=== PATIENT | female | born 1950 | race Caucasian/White ===

== ENCOUNTER 2016-10-01 09:25 | Outpatient (CLI) | payer MEDICARE ==
[2016-10-01] MEDS ORDERED: ADENOSINE 90 MG/30 ML VIAL IVP ONE (11:00)
== END 2016-10-01 09:26 | disposition home or self-care (01) ==
DX: R06.09 Other forms of dyspnea (principal); I10 Essential (primary) hypertension; E78.5 Hyperlipidemia, unspecified; E66.01 Morbid (severe) obesity due to excess calories
CPT/HCPCS: 78452; 93017; A9500; J0153

== ENCOUNTER 2016-10-10 13:05 | Outpatient (CLI) | payer MEDICARE ==
[2016-10-10] MEDS ORDERED: ALBUTEROL NEB 2.5 MG/3 ML INH ONE (13:44)
== END 2016-10-10 13:06 | disposition home or self-care (01) ==
DX: R06.00 Dyspnea, unspecified (principal)
CPT/HCPCS: 94060; 94729; J7613

== ENCOUNTER 2016-11-19 14:01 | Outpatient (CLI) | payer MEDICARE | END 2016-11-19 14:02 | disposition home or self-care (01) | DX: N95.1 Menopausal and female climacteric states (principal) ==

== ENCOUNTER 2016-12-17 20:10 | Outpatient (CLI) | payer MEDICARE ==
[2016-12-17 19:34] LABS: BASOPHILS # (AUTO) 0.1 10^3/uL (0.0-0.1); BASOPHILS % (AUTO) 1.3 %; EOSINOPHILS # (AUTO) 0.3 10^3/uL (0.0-0.7); EOSINOPHILS % (AUTO) 4.2 %; HCT - HEMATOCRIT 43.9 % (37.0-47.0); HGB - HEMOGLOBIN 14.1 g/dL (12.0-16.0); LYMPHOCYTES # (AUTO) 1.5 10^3/uL (1.5-3.5); LYMPHOCYTES % (AUTO) 20.7 %; MEAN CORPUSCULAR HEMOGLOBIN 28.3 pg (27.0-31.0); MEAN CORPUSCULAR HGB CONC 32.1 g/dL (32.0-36.0); MEAN CORPUSCULAR VOLUME 88.2 fL (81.0-99.0); MEAN PLATELET VOLUME 11.7 fL (7.9-10.8); MONOCYTES # (AUTO) 0.7 10^3/uL (0.0-1.0); NEUTROPHILS # (AUTO) 4.8 10^3/uL (1.5-6.6); NEUTROPHILS % (AUTO) 63.8 %; NUCLEATED RED BLOOD CELLS AUTO 0.1 /100WBC; RED BLOOD COUNT 4.98 10^6/uL (4.20-5.40); RED CELL DISTRIBUTION WIDTH 14.5 % (12.0-15.0); UNCORRECTED WHITE BLOOD COUNT 7.5 x10^3/uL; WHITE BLOOD COUNT 7.5 x10^3/uL (4.8-10.8)
[2016-12-17 19:47] LABS: ALBUMIN/GLOBULIN RATIO 1.2 (1.0-2.2); BILIRUBIN,TOTAL 0.6 mg/dL (0.2-1.0); CALCIUM 9.2 mg/dL (8.5-10.3); CREATININE 0.8 mg/dL (0.4-1.0)
== END 2016-12-17 20:11 | disposition home or self-care (01) ==
LOC: LAB.WCP 20:10
PROVIDERS: ATTEND Physician Assistant Medical
DX: R53.83 Other fatigue (principal)
CPT/HCPCS: 36415; 80053; 84443; 85025

== ENCOUNTER 2017-01-08 14:56 | Outpatient (CLI) | payer MEDICARE ==
[2017-01-08] MEDS ORDERED: IOPAMIDOL-300 100 ML VIAL IVP ONE (15:46)
--- NOTE | 2017-01-09 02:20 | CT Report ---
EXAM: CT SOFT TISSUE NECK EXAM DATE: 01/08/2017 03:34 PM. HISTORY: Dysphagia, feels like there is a lump in the throat. COMPARISONS: None. TECHNIQUE: Routine soft tissue neck CT protocol. IV contrast: 100 cc Isovue-300. Reconstructions: Cor onal and sagittal. In accordance with CT protocol optimization, one or more of the following dose reduction techniques w ere utilized for this exam: automated exposure control, adjustment of mA and/or KV based on patient s ize, or use of iterative reconstructive technique. FINDINGS: Intracranial structures: Visualized intracranial structures are unremarkable. The paranasal sinuses, the visualized orbits, the mastoid air cells are unremarkable. Bones: No fractures, bone lesions . Moderate degenerative spondylosis of the visualized spine, with n o acute fracture or malalignment. Prominent anterior osteophytosis is seen at C5-C6 level (series 6 i mage 43). Glands: The salivary glands, thyroid gland, and tonsillar tissues are normal in size and enhancement. Soft Tissues: Normal. No adenopathy, abscess, or mass. No airway narrowing. No foreign bodies identif ied. Other: Visualized lung apices are clear. IMPRESSION: 1. Prominent anterior osteophytosis is seen at C5-C6 level (series 6 image 43). This could result in globus sensation. 2. No evidence of soft tissue mass, adenopathy, or abscess. No airway narrowing. [facility] Referring Provider Line: [phone] SITE ID: [id number]
== END 2017-01-08 14:57 | disposition home or self-care (01) ==
LOC: DI 14:56
PROVIDERS: ATTEND Physician Assistant Medical
DX: M25.78 Osteophyte, vertebrae (principal)
CPT/HCPCS: 70491; Q9967

== ENCOUNTER 2017-01-09 13:42 | Outpatient (CLI) | payer MEDICARE ==
[2017-01-09] MEDS ORDERED: GADOBUTROL 15 MMOL/15 ML VIAL IVP ONE (15:17)
--- NOTE | 2017-01-10 18:26 | MRI Report ---
EXAM: MRI BRAIN WITHOUT AND WITH CONTRAST EXAM DATE: 01/09/2017 03:28 PM. CLINICAL HISTORY: Memory loss, headache. COMPARISON: None. TECHNIQUE: Multiplanar, multisequence T1-weighted and fluid-sensitive MR sequences of the brain were performed. Sequences optimized for routine evaluation. Other: None. Without and with IV Contrast: Wit hout and with 12 mL Gadavist. FINDINGS: Brain Volume: Normal for age. Parenchyma/Dura: No acute or recent ischemic infarct. No cerebral hemorrhage. Aevo-jm-ijfdzinb white matter disease is present including a few scattered foci of nodular and amorphous T2 hyperintensity i n the cerebral deep white matter as well as more confluent and amorphous T2 hyperintensities at the m argins of the lateral ventricles. No abnormal cerebral enhancement. 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 No other evidence for intracranial enhancing or space-occupying mass. Contrast opacificati on of the major dural venous sinuses is present as expected. Ventricles/Cisterns: No hydrocephalus. Sinuses: No acute sinus or mastoid disease. Bones: No focal pathologic appearing marrow signal changes in the skull or clivus. Other: The major arterial skull base flow voids are present. IMPRESSION: 1. No acute hemorrhage, stroke or intracranial enhancing mass. 2. Mild to moderate non-specific cerebral white matter T2 hyperintensities, likely from aging and chr onic microangiopathy. 3. 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 [facility] Referring Provider Line: [phone] SITE ID: [id number]
== END 2017-01-09 13:43 | disposition home or self-care (01) ==
LOC: DI 13:42
PROVIDERS: ATTEND Physician Assistant Medical
DX: R41.3 Other amnesia (principal); R51 Headache
CPT/HCPCS: 70553; A9585

== ENCOUNTER 2017-01-26 14:16 | Outpatient (CLI) | payer MEDICARE, OTHER | END 2017-01-26 14:17 | disposition critical access hospital (66) | DX: S91.012A Laceration without foreign body, left ankle, initial encounter (principal); M25.562 Pain in left knee; V28.4XXA Motorcycle driver injured in noncollision transport accident in traffic accident, initial encounter; Y92.414 Local residential or business street as the place of occurrence of the external cause | CPT/HCPCS: A0425; A0427 ==

== ENCOUNTER 2017-01-26 14:29 | Emergency (ER) | payer MEDICARE, OTHER ==
[2017-01-26] MEDS ORDERED: HYDROmorphone 1 MG/ML SYRINGE IVP STA ×2 (14:39→14:53)
[2017-01-26] MEDS ORDERED: TETANUS/DIPHTHERIA/PERTUSSIS 0.5 ML SYRINGE IM ONE ×2 (14:40→14:45)
[2017-01-26] MEDS ORDERED: ONDANSETRON 4 MG/2 ML VIAL IVP STA (14:40)
[2017-01-26] MEDS ORDERED: ceFAZolin 2 GM/50 ML 50 ML IV ONE ×2 (14:40→14:45)
[2017-01-26] MEDS ORDERED: ONDANSETRON 4 MG/2 ML VIAL ONE (14:44)
[2017-01-26] MEDS ORDERED: HYDROmorphone 1 MG/ML SYRINGE ONE (14:53)
[2017-01-26] MEDS ORDERED: diazePAM INJ 5 MG/ML SYRINGE ONE ×3 (15:18→16:58)
[2017-01-26] MEDS ORDERED: diazePAM INJ 5 MG/ML SYRINGE IVP STA ×3 (15:19→16:58)
== END 2017-01-26 17:52 | disposition short-term general hospital (02) ==
DX: S82.142A Displaced bicondylar fracture of left tibia, initial encounter for closed fracture (principal); S92.142B Displaced dome fracture of left talus, initial encounter for open fracture; S02.2XXA Fracture of nasal bones, initial encounter for closed fracture; S02.32XA Fracture of orbital floor, left side, initial encounter for closed fracture; S93.05XA Dislocation of left ankle joint, initial encounter; V27.4XXA Motorcycle driver injured in collision with fixed or stationary object in traffic accident, initial encounter; Y92.89 Other specified places as the place of occurrence of the external cause; Z23 Encounter for immunization
CPT/HCPCS: 36415; 70450; 70486; 72125; 72192; 73590; 73610; 73700; 80053; 83690; 85025; 90471; 90715; 96374; 96375; 96376; 99284; 99285; J0690; J1170

== ENCOUNTER 2017-02-23 07:10 | Outpatient (CLI) | payer MEDICARE ==
[2017-02-23 07:56] LABS: BUN - BLOOD UREA NITROGEN 5 mg/dL (6-20); CALCIUM 8.1 mg/dL (8.5-10.3); CARBON DIOXIDE - CO2 32 mmol/L (21-32); CHLORIDE 95 mmol/L (101-111); CREATININE 0.5 mg/dL (0.4-1.0); GFR - MDRD 123 (>89); GLUCOSE 104 mg/dL (70-100); POTASSIUM 3.1 mmol/L (3.5-5.0); SODIUM 136 mmol/L (135-145)
[2017-02-23 08:01] LABS: BASOPHILS % (AUTO) 0.8 %; EOSINOPHILS # (AUTO) 0.1 10^3/uL (0.0-0.7); EOSINOPHILS % (AUTO) 1.3 %; HCT - HEMATOCRIT 21.6 % (37.0-47.0); LYMPHOCYTES # (AUTO) 0.8 10^3/uL (1.5-3.5); LYMPHOCYTES % (AUTO) 13.9 %; MEAN CORPUSCULAR HGB CONC 31.8 g/dL (32.0-36.0); MEAN CORPUSCULAR VOLUME 84.8 fL (81.0-99.0); MEAN PLATELET VOLUME 8.8 fL (7.9-10.8); MONOCYTES # (AUTO) 0.8 10^3/uL (0.0-1.0); MONOCYTES % (AUTO) 14.9 %; NEUTROPHILS # (AUTO) 3.9 10^3/uL (1.5-6.6); NEUTROPHILS % (AUTO) 69.1 %; RED BLOOD COUNT 2.55 10^6/uL (4.20-5.40); RED CELL DISTRIBUTION WIDTH 16.7 % (12.0-15.0); UNCORRECTED WHITE BLOOD COUNT 5.7 x10^3/uL; WHITE BLOOD COUNT 5.7 x10^3/uL (4.8-10.8)
[2017-02-23 08:14] LABS: HGB - HEMOGLOBIN 6.9 g/dL (12.0-16.0)
[2017-02-23 08:25] LABS: PLATELET ESTIMATE, MANUAL NORMAL (130-450,000) (NORMAL); PLATELET MORPHOLOGY NORMAL APPEARANCE (NORMAL)
== END 2017-02-23 07:11 | disposition home or self-care (01) ==
LOC: LAB 07:10
PROVIDERS: ATTEND Family Medicine
DX: J96.01 Acute respiratory failure with hypoxia (principal); D64.9 Anemia, unspecified; Z51.81 Encounter for therapeutic drug level monitoring
CPT/HCPCS: 80048; 85025

== ENCOUNTER 2017-02-23 11:59 | Outpatient (CLI) | payer MEDICARE | END 2017-02-23 12:00 | disposition critical access hospital (66) | LOC: EMS 11:59 | PROVIDERS: ATTEND Surgery | DX: D64.9 Anemia, unspecified (principal) | CPT/HCPCS: A0425; A0428; A0429 ==

== ENCOUNTER 2017-02-23 12:02 | Emergency (ER) | payer MEDICARE ==
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
[2017-02-23] MEDS ORDERED: diazePAM 5 MG TABLET PO STA (13:10)
[2017-02-23] MEDS ORDERED: diazePAM 5 MG TABLET PO ONE (13:17)
[2017-02-23] MEDS ORDERED: ACETAMINOPHEN 1,000 MG/100 ML 100 ML IV STA (13:35)
[2017-02-23] MEDS ORDERED: ACETAMINOPHEN 1,000 MG/100 ML 100 ML IV ONE (13:46)
[2017-02-23] MEDS ORDERED: MORPHINE 2 MG/ML SYRINGE IVP STA (14:26)
[2017-02-23] MEDS ORDERED: ONDANSETRON 4 MG/2 ML VIAL IVP STA (14:26)
[2017-02-23] MEDS ORDERED: MORPHINE 2 MG/ML SYRINGE ONE (14:35)
[2017-02-23] MEDS ORDERED: ONDANSETRON 4 MG/2 ML VIAL ONE (14:35)
[2017-02-23] MEDS ORDERED: SODIUM CHLORIDE 0.9% 10 ML ONE (14:36)
[2017-02-23] MEDS ORDERED: SODIUM CHLORIDE FLUSH 0.9% 10 ML SYRINGE IVP ONE (14:36)
[2017-02-23 17:51] VITALS: BP 119/74
--- NOTE | 2017-02-23 20:10 | Ultrasound Report ---
LEFT LEG VENOUS DUPLEX: 02/23/2017 CLINICAL INDICATION: Postop swelling, pain. TECHNIQUE: Real-time sonographic vascular imaging was performed by the reinforcing metal worker through the left lower extremity utilizing both color-flow and Doppler spectral analysis. Multiple employment representative sta tic images were saved for review. There is no evidence of DVT in the left common femoral, profunda femoral, superficial femoral or popl iteal veins. The calf veins were not visualized, secondary to external fixator hardware. IMPRESSION: NO EVIDENCE OF DVT IN THE VISUALIZED VENOUS SEGMENTS. JOB #: [id number] EXT JOB #:
== END 2017-02-23 18:24 | disposition home or self-care (01) ==
LOC: ED 12:02
DX: D64.9 Anemia, unspecified (principal); M79.662 Pain in left lower leg; M79.89 Other specified soft tissue disorders; R19.7 Diarrhea, unspecified; I10 Essential (primary) hypertension; E78.00 Pure hypercholesterolemia, unspecified; G47.30 Sleep apnea, unspecified; K21.9 Gastro-esophageal reflux disease without esophagitis; N28.9 Disorder of kidney and ureter, unspecified; M19.90 Unspecified osteoarthritis, unspecified site
CPT/HCPCS: 36415; 80048; 80202; 85025; 86850; 86900; 86901; 87493; 93971; 96365; 96375; 99284; A9270; J0131; 86920

== ENCOUNTER 2017-02-23 18:40 | Outpatient (CLI) | payer MEDICARE | END 2017-02-23 18:41 | LOC: EMS 18:40 | PROVIDERS: ATTEND Surgery | DX: D64.9 Anemia, unspecified (principal) ==

== ENCOUNTER 2017-02-24 08:00 | Outpatient (CLI) | payer MEDICARE | END 2017-02-24 08:01 | disposition home or self-care (01) | LOC: LAB 08:00 | PROVIDERS: ATTEND Family Medicine | DX: T81.4XXD Infection following a procedure, subsequent encounter (principal) ==

== ENCOUNTER 2017-02-26 07:45 | Outpatient (CLI) | payer OTHER, MEDICARE ==
[2017-02-26 10:31] LABS: BASOPHILS % (AUTO) 0.7 %; EOSINOPHILS # (AUTO) 0.2 10^3/uL (0.0-0.7); EOSINOPHILS % (AUTO) 4.4 %; HCT - HEMATOCRIT 26.6 % (37.0-47.0); HGB - HEMOGLOBIN 8.4 g/dL (12.0-16.0); LYMPHOCYTES # (AUTO) 0.6 10^3/uL (1.5-3.5); LYMPHOCYTES % (AUTO) 10.4 %; MEAN CORPUSCULAR HEMOGLOBIN 26.7 pg (27.0-31.0); MEAN CORPUSCULAR HGB CONC 31.4 g/dL (32.0-36.0); MEAN CORPUSCULAR VOLUME 85.1 fL (81.0-99.0); MEAN PLATELET VOLUME 9.6 fL (7.9-10.8); MONOCYTES # (AUTO) 0.6 10^3/uL (0.0-1.0); NEUTROPHILS # (AUTO) 3.9 10^3/uL (1.5-6.6); NEUTROPHILS % (AUTO) 72.5 %; RED BLOOD COUNT 3.13 10^6/uL (4.20-5.40); RED CELL DISTRIBUTION WIDTH 17.1 % (12.0-15.0); UNCORRECTED WHITE BLOOD COUNT 5.3 x10^3/uL; WHITE BLOOD COUNT 5.3 x10^3/uL (4.8-10.8)
[2017-02-26 10:55] LABS: CREATININE 0.5 mg/dL (0.4-1.0)
[2017-02-26 10:59] LABS: CALCIUM 8.1 mg/dL (8.5-10.3); POTASSIUM 3.3 mmol/L (3.5-5.0)
== END 2017-02-26 07:46 | disposition home or self-care (01) ==
LOC: LAB.R 07:45
DX: I10 Essential (primary) hypertension (principal); D64.9 Anemia, unspecified
CPT/HCPCS: 80048; 85025

== ENCOUNTER 2017-02-28 08:00 | Outpatient (CLI) | payer MEDICARE, OTHER ==
[2017-02-28 10:42] LABS: BASOPHILS # (AUTO) 0.1 10^3/uL (0.0-0.1); EOSINOPHILS # (AUTO) 0.3 10^3/uL (0.0-0.7); EOSINOPHILS % (AUTO) 3.9 %; HCT - HEMATOCRIT 24.3 % (37.0-47.0); HGB - HEMOGLOBIN 7.5 g/dL (12.0-16.0); LYMPHOCYTES # (AUTO) 0.7 10^3/uL (1.5-3.5); MEAN PLATELET VOLUME 9.7 fL (7.9-10.8); MONOCYTES # (AUTO) 0.8 10^3/uL (0.0-1.0); MONOCYTES % (AUTO) 9.6 %; NEUTROPHILS % (AUTO) 76.5 %; RED BLOOD COUNT 2.89 10^6/uL (4.20-5.40); RED CELL DISTRIBUTION WIDTH 17.3 % (12.0-15.0); UNCORRECTED WHITE BLOOD COUNT 7.8 x10^3/uL; WHITE BLOOD COUNT 7.8 x10^3/uL (4.8-10.8)
[2017-02-28 10:57] LABS: ALBUMIN/GLOBULIN RATIO 0.6 (1.0-2.2); BILIRUBIN,TOTAL 0.4 mg/dL (0.2-1.0); CALCIUM 8.2 mg/dL (8.5-10.3); CREATININE 0.5 mg/dL (0.4-1.0); POTASSIUM 3.5 mmol/L (3.5-5.0); TOTAL PROTEIN 5.5 g/dL (6.7-8.2)
== END 2017-02-28 08:01 | disposition home or self-care (01) ==
LOC: LAB.R 08:00
DX: I10 Essential (primary) hypertension (principal); T81.4XXD Infection following a procedure, subsequent encounter
CPT/HCPCS: 80053; 82550; 85025; 85651

== ENCOUNTER 2017-03-04 10:30 | Outpatient (CLI) | payer MEDICARE ==
[2017-03-04 14:39] LABS: CREATININE 0.5 mg/dL (0.4-1.0); POTASSIUM 3.4 mmol/L (3.5-5.0)
[2017-03-04 16:08] LABS: BASOPHILS # (AUTO) 0.1 10^3/uL (0.0-0.1); BASOPHILS % (AUTO) 0.7 %; EOSINOPHILS # (AUTO) 0.3 10^3/uL (0.0-0.7); EOSINOPHILS % (AUTO) 3.5 %; HCT - HEMATOCRIT 29.3 % (37.0-47.0); HGB - HEMOGLOBIN 8.9 g/dL (12.0-16.0); LYMPHOCYTES # (AUTO) 0.7 10^3/uL (1.5-3.5); LYMPHOCYTES % (AUTO) 8.7 %; MEAN CORPUSCULAR HEMOGLOBIN 25.4 pg (27.0-31.0); MEAN CORPUSCULAR HGB CONC 30.3 g/dL (32.0-36.0); MEAN CORPUSCULAR VOLUME 83.6 fL (81.0-99.0); MEAN PLATELET VOLUME 9.6 fL (7.9-10.8); MONOCYTES # (AUTO) 0.7 10^3/uL (0.0-1.0); NEUTROPHILS # (AUTO) 6.5 10^3/uL (1.5-6.6); NEUTROPHILS % (AUTO) 78.1 %; NUCLEATED RED BLOOD CELLS AUTO 0.1 /100WBC; RED CELL DISTRIBUTION WIDTH 17.3 % (12.0-15.0); UNCORRECTED WHITE BLOOD COUNT 8.3 x10^3/uL; WHITE BLOOD COUNT 8.3 x10^3/uL (4.8-10.8)
== END 2017-03-04 10:31 | disposition home or self-care (01) ==
LOC: LAB.R 10:30
DX: D64.9 Anemia, unspecified (principal); R79.89 Other specified abnormal findings of blood chemistry; T81.4XXD Infection following a procedure, subsequent encounter
CPT/HCPCS: 80048; 82550; 85025

== ENCOUNTER 2017-03-07 08:00 | Outpatient (CLI) | payer MEDICARE ==
[2017-03-07 21:55] LABS: BASOPHILS # (AUTO) 0.1 10^3/uL (0.0-0.1); BASOPHILS % (AUTO) 0.6 %; EOSINOPHILS # (AUTO) 0.4 10^3/uL (0.0-0.7); EOSINOPHILS % (AUTO) 4.5 %; HCT - HEMATOCRIT 24.8 % (37.0-47.0); LYMPHOCYTES # (AUTO) 1.5 10^3/uL (1.5-3.5); LYMPHOCYTES % (AUTO) 18.1 %; MEAN CORPUSCULAR HEMOGLOBIN 26.2 pg (27.0-31.0); MEAN CORPUSCULAR HGB CONC 32.2 g/dL (32.0-36.0); MEAN CORPUSCULAR VOLUME 81.5 fL (81.0-99.0); MEAN PLATELET VOLUME 8.9 fL (7.9-10.8); MONOCYTES % (AUTO) 12.4 %; NEUTROPHILS # (AUTO) 5.4 10^3/uL (1.5-6.6); NEUTROPHILS % (AUTO) 64.4 %; RED BLOOD COUNT 3.04 10^6/uL (4.20-5.40); RED CELL DISTRIBUTION WIDTH 17.8 % (12.0-15.0); UNCORRECTED WHITE BLOOD COUNT 8.3 x10^3/uL; WHITE BLOOD COUNT 8.3 x10^3/uL (4.8-10.8)
[2017-03-07 21:58] LABS: ALBUMIN/GLOBULIN RATIO 0.7 (1.0-2.2); BILIRUBIN,TOTAL 0.4 mg/dL (0.2-1.0); BUN - BLOOD UREA NITROGEN < 5 mg/dL (6-20); CALCIUM 7.9 mg/dL (8.5-10.3); CARBON DIOXIDE - CO2 35 mmol/L (21-32); CHLORIDE 90 mmol/L (101-111); CREATININE 0.6 mg/dL (0.4-1.0); GFR - MDRD 100 (>89); GLUCOSE 93 mg/dL (70-100); POTASSIUM 2.6 mmol/L (3.5-5.0); SODIUM 133 mmol/L (135-145); TOTAL PROTEIN 4.7 g/dL (6.7-8.2)
== END 2017-03-07 08:01 | disposition home or self-care (01) ==
LOC: LAB.R 08:00
DX: I10 Essential (primary) hypertension (principal); D64.9 Anemia, unspecified; S22.068D Other fracture of T7-T8 thoracic vertebra, subsequent encounter for fracture with routine healing
CPT/HCPCS: 80053; 82550; 85025

== ENCOUNTER 2017-03-10 23:00 | Outpatient (CLI) | payer MEDICARE | END 2017-03-10 23:01 | disposition critical access hospital (66) | LOC: EMS 23:00 | PROVIDERS: ATTEND Surgery | DX: R10.32 Left lower quadrant pain (principal) | CPT/HCPCS: A0425; A0429 ==

== ENCOUNTER 2017-03-10 23:05 | Inpatient (IN) | payer MEDICARE ==
[2017-03-10] MEDS ORDERED: ONDANSETRON 4 MG/2 ML VIAL IVP STA (23:21)
[2017-03-10] MEDS ORDERED: SODIUM CHLORIDE 0.9% 1,000 ML IV ONE (23:21)
[2017-03-10 23:58] LABS: PH,URINE 5.5 PH (5.0-7.5)
[2017-03-10] MEDS ORDERED: ONDANSETRON 4 MG/2 ML VIAL ONE (23:59)
[2017-03-11 00:02] LABS: UA w/ MICROSCOPIC CHARGE YES
[2017-03-11 00:05] LABS: BILIRUBIN,URINE NEGATIVE (NEGATIVE)
[2017-03-11 00:09] LABS: UR CULTURE IF IND INDICATED
[2017-03-11 00:10] LABS: ALBUMIN/GLOBULIN RATIO 0.5 (1.0-2.2); BILIRUBIN,TOTAL 0.6 mg/dL (0.2-1.0); BUN - BLOOD UREA NITROGEN 26 mg/dL (6-20); CARBON DIOXIDE - CO2 33 mmol/L (21-32); CHLORIDE 82 mmol/L (101-111); CREATININE 1.3 mg/dL (0.4-1.0); GFR - MDRD 41 (>89); GLUCOSE 122 mg/dL (70-100); LIPASE 18 U/L (22-51); POTASSIUM 2.9 mmol/L (3.5-5.0); SODIUM 127 mmol/L (135-145); TOTAL PROTEIN 5.1 g/dL (6.7-8.2)
[2017-03-11 00:18] LABS: BASOPHILS % (AUTO) 0.3 %; EOSINOPHILS % (AUTO) 1.6 %; HCT - HEMATOCRIT 33.5 % (37.0-47.0); HGB - HEMOGLOBIN 10.5 g/dL (12.0-16.0); LYMPHOCYTES % (AUTO) 7.8 %; MEAN CORPUSCULAR HEMOGLOBIN 25.2 pg (27.0-31.0); MEAN CORPUSCULAR HGB CONC 31.2 g/dL (32.0-36.0); MEAN CORPUSCULAR VOLUME 80.6 fL (81.0-99.0); MEAN PLATELET VOLUME 9.3 fL (7.9-10.8); MONOCYTES % (AUTO) 8.5 %; NEUTROPHILS % (AUTO) 81.8 %; RED BLOOD COUNT 4.15 10^6/uL (4.20-5.40); RED CELL DISTRIBUTION WIDTH 18.4 % (12.0-15.0); UNCORRECTED WHITE BLOOD COUNT 44.3 x10^3/uL
[2017-03-11 00:20] LABS: WHITE BLOOD COUNT 44.3 x10^3/uL (4.8-10.8)
[2017-03-11] MEDS ORDERED: MIN OIL/DIMETHICON/COCONUT OIL 92 GM TUBE TOP ONE (00:29)
[2017-03-11 01:16] LABS: MAGNESIUM 1.5 mg/dL (1.7-2.8); PHOSPHORUS 4.5 mg/dL (2.5-4.6)
[2017-03-11] MEDS ORDERED: HYDROmorphone 1 MG/ML SYRINGE IM STA (01:23)
[2017-03-11] MEDS ORDERED: SODIUM CHLORIDE 0.9% 1,000 ML IV ONE (01:24)
[2017-03-11] MEDS ORDERED: HYDROmorphone 1 MG/ML SYRINGE ONE (01:31)
[2017-03-11 01:32] LABS: BAND NEUTROPHILS % (MANUAL) 12 %; EOSINOPHILS % (MANUAL) 1 %; LYMPHOCYTES % (MANUAL) 15 %; NEUTROPHILS % (MANUAL) 66 %; TOTAL CELLS COUNTED 100
[2017-03-11 01:33] LABS: NP AUTO DIFFERENTIAL? YES; NP MAN DIFFERENTIAL? NO; PLATELET ESTIMATE, MANUAL NORMAL (130-450,000) (NORMAL)
[2017-03-11] MEDS ORDERED: SODIUM CHLORIDE FLUSH 0.9% 10 ML SYRINGE IVP ONE (01:37)
[2017-03-11] MEDS ORDERED: MORPHINE 2 MG/ML CARPUJECT IVP STA (01:38)
[2017-03-11] MEDS ORDERED: MORPHINE 2 MG/ML CARPUJECT ONE (01:43)
--- NOTE | 2017-03-11 01:45 | CT Preliminary Report ---
Exam: CT Abdomen/Pelvis W/O IMPRESSION: 1. Marked pancolitis, likely infectious. Ulcerative colitis would be in the differential diagnosis. 2. Ufce-vf-vzdbfpmk ascites. No free air seen. 3. Elevated right hemidiaphragm with bibasilar atelectasis or infiltrate, right greater than left. 4. Trace pericardial effusion. 5. Body wall edema. 6. Ventral hernia containing fat, unchanged from the prior CT. [facility] SITE ID: [id number]
--- NOTE | 2017-03-11 01:47 | CT Report ---
EXAM: CT ABDOMEN AND PELVIS EXAM DATE: 03/11/2017 01:18 AM. CLINICAL HISTORY: Kidney disease. Markedly elevated white count. Diarrhea. COMPARISONS: 05/30/2016. TECHNIQUE: Routine helical CT imaging was performed through the abdomen and pelvis. IV contrast: None . Enteric contrast: No. Reconstructions: Coronal and sagittal. In accordance with CT protocol optimization, one or more of the following dose reduction techniques w ere utilized for this exam: automated exposure control, adjustment of mA and/or KV based on patient s ize, or use of iterative reconstructive technique. FINDINGS: Lung Bases: Bibasilar atelectasis or infiltrate. Elevated right hemidiaphragm. Trace pericardial effu alma. Liver: No focal lesion identified on this noncontrast examination. Gallbladder/Bile Ducts: Status post cholecystectomy. Spleen: Normal. Pancreas: Normal. Adrenal Glands: Normal. Kidneys: Left renal cyst measuring 2.2 cm. No masses or hydronephrosis. Peritoneal Cavity/Bowel: Marked wall thickening of the entire colon. No definite pneumatosis identifi ed. No small bowel obstruction. Small to moderate amount of ascites. No lymphadenopathy seen. Appendi x is not optimally assessed. Pelvic Organs: Decompressed urinary bladder with Segura catheter. Uterus is not seen. Vasculature: Mild to moderate atherosclerosis. No aortic aneurysm. Bones: Degenerative changes in the spine. Other: Hernia repair. Ventral hernia containing fat, unchanged from the prior exam. Body wall edema e xtending into the thighs. IMPRESSION: 1. Marked pancolitis, likely infectious. Ulcerative colitis would be in the differential diagnosis. 2. Imyc-xb-ouyntusj ascites. No free air seen. 3. Elevated right hemidiaphragm with bibasilar atelectasis or infiltrate, right greater than left. 4. Trace pericardial effusion. 5. Body wall edema. 6. Ventral hernia containing fat, unchanged from the prior CT. [facility] Referring Provider Line: [phone] SITE ID: [id number]
--- NOTE | 2017-03-11 01:50 | XRAY Preliminary Report ---
Exam: XR Chest 1 View IMPRESSION: 1. Elevated right hemidiaphragm with mild bibasilar atelectasis or infiltrate. [facility] SITE ID: [id number]
--- NOTE | 2017-03-11 01:53 | XRAY Report ---
EXAM: CHEST RADIOGRAPHY EXAM DATE: 03/11/2017 01:18 AM. CLINICAL HISTORY: Elevated white count. COMPARISON: 04/24/2016. TECHNIQUE: 1 view. FINDINGS: Lungs/Pleura: Elevated right hemidiaphragm. Mild bibasilar atelectasis or infiltrate. No significant pleural effusion seen. No pneumothorax. Mediastinum: Within exam limitations, cardiomediastinal contour is probably normal. Other: None. IMPRESSION: 1. Elevated right hemidiaphragm with mild bibasilar atelectasis or infiltrate. [facility] Referring Provider Line: [phone] SITE ID: [id number]
[2017-03-11] MEDS ORDERED: metroNIDAZOLE 500 MG/100 ML 100 ML IV ONE (01:54)
[2017-03-11] MEDS ORDERED: ONDANSETRON 4 MG/2 ML VIAL IVP PRN (02:22)
[2017-03-11] MEDS ORDERED: ACETAMINOPHEN 325 MG TABLET PO PRN (02:22)
[2017-03-11] MEDS ORDERED: MAGNESIUM SULFATE 2 GRAM 50 ML IV ONE (02:26)
[2017-03-11] MEDS ORDERED: VANCOMYCIN 125 MG CAPSULE PO STA (02:27)
[2017-03-11] MEDS ORDERED: MORPHINE 2 MG/ML CARPUJECT IVP PRN (02:33)
[2017-03-11] MEDS ORDERED: NON FORMULARY MED (Melatonin [Melatonin] 3 MG) PO PRN (02:37)
[2017-03-11] MEDS ORDERED: NS W/20 MEQ KCL 1,000 ML IV SCH (03:00)
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
[2017-03-11] MEDS: SODIUM CHLORIDE FLUSH 0.9% 10 ML SYRINGE IVP PRN ×4 (05:30→21:12)
[2017-03-11] MEDS: SODIUM CHLORIDE FLUSH 0.9% 10 ML SYRINGE IVP SCH ×3 (05:30→17:14)
[2017-03-11 05:48] LABS: BASOPHILS % (AUTO) 0.5 %; EOSINOPHILS % (AUTO) 0.5 %; HCT - HEMATOCRIT 35.1 % (37.0-47.0); HGB - HEMOGLOBIN 10.8 g/dL (12.0-16.0); MEAN CORPUSCULAR HEMOGLOBIN 24.8 pg (27.0-31.0); MEAN CORPUSCULAR HGB CONC 30.9 g/dL (32.0-36.0); MEAN CORPUSCULAR VOLUME 80.2 fL (81.0-99.0); MEAN PLATELET VOLUME 8.4 fL (7.9-10.8); MONOCYTES % (AUTO) 8.6 %; NEUTROPHILS % (AUTO) 82.4 %; RED BLOOD COUNT 4.38 10^6/uL (4.20-5.40); RED CELL DISTRIBUTION WIDTH 18.1 % (12.0-15.0); UNCORRECTED WHITE BLOOD COUNT 46.9 x10^3/uL
[2017-03-11 05:58] LABS: WHITE BLOOD COUNT 46.9 x10^3/uL (4.8-10.8)
[2017-03-11 06:01] LABS: ALBUMIN/GLOBULIN RATIO 0.5 (1.0-2.2); BILIRUBIN,TOTAL 0.5 mg/dL (0.2-1.0); BUN - BLOOD UREA NITROGEN 27 mg/dL (6-20); CALCIUM 6.8 mg/dL (8.5-10.3); CARBON DIOXIDE - CO2 32 mmol/L (21-32); CHLORIDE 85 mmol/L (101-111); CREATININE 1.3 mg/dL (0.4-1.0); GFR - MDRD 41 (>89); GLUCOSE 132 mg/dL (70-100); MAGNESIUM 2.6 mg/dL (1.7-2.8); POTASSIUM 3.1 mmol/L (3.5-5.0); SODIUM 127 mmol/L (135-145)
[2017-03-11] MEDS: MORPHINE 2 MG/ML CARPUJECT IVP PRN ×4 (06:43→20:25)
[2017-03-11 06:48] LABS: BAND NEUTROPHILS % (MANUAL) 11 %; BASOPHILS % (MANUAL) 1 %; LYMPHOCYTES % (MANUAL) 10 %; NEUTROPHILS % (MANUAL) 59 %; TOTAL CELLS COUNTED 100
[2017-03-11 06:49] LABS: NP AUTO DIFFERENTIAL? YES; NP MAN DIFFERENTIAL? NO; PLATELET ESTIMATE, MANUAL NORMAL (130-450,000) (NORMAL); SLIDE SENT FOR PATH REVIEW? Indicated
[2017-03-11 06:50] LABS: CBC SPECIMEN NUMBER 734562; PATHOLOGIST REVIEW ORDER PATH SLIDE REVIEW
[2017-03-11] MEDS: MIN OIL/DIMETHICON/COCONUT OIL 92 GM TUBE TOP SCH ×2 (07:03→20:37)
[2017-03-11] MEDS: PANTOPRAZOLE 40 MG VIAL IVP SCH (07:03)
[2017-03-11] MEDS: VANCOMYCIN 125 MG CAPSULE PO SCH ×4 (07:04→20:37)
[2017-03-11] MEDS: IPRATROPIUM/ALBUTEROL 3 ML NEB INH PRN ×3 (07:55→16:41)
[2017-03-11] MEDS: BUDESONIDE 0.5 MG/2 ML NEB INH SCH ×2 (07:55→16:41)
[2017-03-11] MEDS ORDERED: POTASSIUM CHLORIDE INJ 40 MEQ in SODIUM CHLORIDE 0.9% 480 ML IV ONE (08:06)
[2017-03-11] MEDS ORDERED: CALCIUM GLUCONATE 1,000 MG in SODIUM CHLORIDE 0.9% 50 ML IV ONE ×2 (08:08→09:00)
--- NOTE | 2017-03-11 08:49 | PROVIDER PROGRESS NOTE ---
Subjective - Prog Note Date Prog Note Date: 03/11/17 - Subjective Pt reports feeling: Improved Subjective: pt report she feel better, got some sleep on last night. No fever, chill, chest pain, headache. Current Medications - Current Medications Current Medications: Active Medications Acetaminophen (Tylenol) 650 mg PO Q4HR PRN PRN Reason: Pain 1 to 4 Albuterol/Ipratropium (Duoneb) 3 ml INH RTQID PRN PRN Reason: Shortness of Air/Wheezing Last Admin: 03/11/17 07:55 Dose: 3 ml Budesonide (Pulmicort) 0.5 mg INH RTBID ZULY Last Admin: 03/11/17 07:55 Dose: 0.5 mg Carbidopa/Levodopa (Sinemet 25 Mg/100 Mg) 1 tab PO BID [facility] Enoxaparin Sodium (Lovenox) 40 mg SUBQ DAILY [facility] Escitalopram Oxalate (Lexapro) 30 mg PO DAILY [facility] Felodipine (Plendil) 5 mg PO DAILY [facility] Potassium Chloride/Sodium Chloride (Normal Saline 0.9% W/20 Meq Kcl) 1,000 mls @ 100 mls/hr IV .Q10H [facility] Last Admin: 03/11/17 04:23 Dose: 100 mls/hr Piperacillin Sod/Tazobactam (Sod 3.375 gm/ Sodium Chloride) 100 mls @ 200 mls/ hr IV Q6H [facility] Calcium Gluconate 1,000 mg/ (Sodium Chloride) 60 mls @ 60 mls/hr IV ONCE ONE Stop: 03/11/17 09:59 Potassium Chloride (Potassium Chloride) 100 mls @ 100 mls/hr IV Q1H [facility] Stop: 03/11/17 12:59 Mineral Oil (Cavilon) 1 applic TOP BID [facility] Last Admin: 03/11/17 07:03 Dose: 1 applic Morphine Sulfate (Morphine) 4 mg IVP Q2HR PRN PRN Reason: PAIN Last Admin: 03/11/17 06:43 Dose: 4 mg Multivitamins (Theragran) 1 tab PO DAILYWM [facility] Ondansetron HCl (Zofran Inj) 4 mg IVP Q4HR PRN PRN Reason: Nausea / Vomiting Pantoprazole Sodium (Protonix) 40 mg IVP QDAC [facility] Last Admin: 03/11/17 07:03 Dose: 40 mg Polyethylene Glycol (Miralax) 17 gm PO DAILY [facility] Sodium Chloride (Normal Saline Flush 0.9%) 10 ml IVP PRN PRN PRN Reason: NEEDED PER PROVIDER ORDERS Last Admin: 03/11/17 07:04 Dose: 10 ml Sodium Chloride (Normal Saline Flush 0.9%) 10 ml IVP Q8HR [facility] Last Admin: 03/11/17 05:30 Dose: 10 ml Vancomycin HCl (Vancocin) 125 mg PO QID [facility] Last Admin: 03/11/17 07:04 Dose: 125 mg Omeprazole [Prilosec] 20 mg PO BID 06/02/13 Acetaminophen [Tylenol Extra Strength] 1,000 mg PO TID 02/23/17 Albuterol Sulf [Ventolin Hfa Inhaler] 1 vial PO QID 02/23/17 Beclomethasone 80 Mcg [Qvar 80] 2 puffs PO BID 02/23/17 Carbidopa/Levodopa 25/100 [Sinemet 25 mg/100 mg] 1 - 2 tab PO BID 02/23/17 Enoxaparin [Lovenox] 1 applic SQ BID 02/23/17 Ergocalciferol [Vitamin D2] 1 cap PO DAILY 02/23/17 Escitalopram Oxalate 30 mg PO DAILY 02/23/17 Felodipine [Felodipine ER] 5 mg PO DAILY 02/23/17 Gabapentin 300 mg PO DAILY 02/23/17 Lactobacillus Acidophilus [Acidophilus] 1 cap PO DAILY 02/23/17 Levofloxacin [Levaquin] 750 mg PO DAILY 02/23/17 Melatonin 3 mg PO DAILY PRN 02/23/17 Multivitamin [Multiple Vitamins] 1 tab PO DAILY 02/23/17 Nebivolol HCl [Bystolic] 5 mg PO DAILY 02/23/17 Polyethylene Glycol 3350 [Miralax] 17 gm PO BID 02/23/17 Psyllium Husk (with Sugar) [Natural Fiber Laxative Powder] 1 packet PO DAILY 08/11 Triamterene/Hydrochlorothiazid [Maxzide 37.5 mg-25 mg Tablet] 1 tab PO DAILY 08/11 Vancomycin/0.9 % Sod Chloride [Vanco 1 Gram/250 ml-0.9% NaCl] 1 bag IV BID 02/23 Carbidopa/Levodopa [Carbidopa-Levo ER 25-100 Tab] 2 tab PO DAILY PM 03/11/17 Furosemide [Furosemide] 40 mg PO DAILY 03/11/17 Hydrocodone/Acetaminophen [Hydrocodon-Acetaminophen 5-325] 1 tab PO Q4H PRN Potassium Chloride 20 meq PO DAILY 03/11/17 Objective - Vital Signs/Intake & Output Vital Signs: Vital Signs x48h Temp Pulse Pulse Pulse Resp BP BP 03/11/17 08:25 36.5 C 100 20 148/85 H 03/11/17 07:55 100 20 03/11/17 03:31 36.8 C 93 03/11/17 02:42 36.8 C 93 20 143/72 H BP Pulse Ox 03/11/17 08:25 94 03/11/17 07:55 03/11/17 03:31 145/93 H 95 03/11/17 02:42 97 Intake & Output: Intake & Output 03/08/17 03/09/17 03/10/17 03/11/17 23:59 23:59 23:59 23:59 Intake Total 1000 Output Total 400 Balance 600 - Objective General Appearance: positive: Alert, Mild distress. negative: Lethargic Eyes Bilateral: positive: Normal inspection, PERRL, EOMI. negative: No lid inflammation, Conjunctivae nml ENT: positive: ENT inspection nml, Pharynx nml. negative: Purulent nasal drainage, Pharyngeal erythema Neck: positive: Nml inspection, Thyroid nml, Trachea midline. negative: Thyromegaly, Lymphadenopathy (R), Lymphadenopathy (L), Stiff neck, Swelling/ bruising, Tracheal deviation Respiratory: positive: Chest non-tender, No respiratory distress, Rhonchi (at right lung) Cardiovascular: positive: Regular rate & rhythm, No murmur, No gallop. negative : Tachycardia, Bradycardia, Systolic murmur, Diastolic murmur Peripheral Pulses: 2+ Radial (R), 2+ Radial (L), 2+ Dorsalis pedis (R), 2+ Dorsalis pedis (L) Abdomen: positive: Non-tender, No distention, Other (reduced bowel sound). negative: Tenderness, Guarding, Rebound Back: positive: Nml inspection. negative: CVA tenderness (R), CVA tenderness (L ) Skin: positive: Color nml, Warm, Dry, Skin rash (bilateral lower extremities slight erthema but no tenderness or warm or swelling), Puncture wound Extremities: positive: Non-tender, Full ROM, Pedal edema. negative: Calf tenderness, Dominique's sign/cords Neurologic/Psychiatric: positive: Oriented x3, Sensation nml, Mood/affect nml, Weakness. negative: Sensory loss, Facial droop, Slurred/abnml speech, Depressed mood/affect - Lab Results Fish Bones: 03/11/17 05:35 03/11/17 05:35 Other Labs: Lab Results x24hrs 03/11/17 03/11/17 Range/Units 05:35 05:35 WBC 46.9 H* (4.8-10.8) x10^3/uL RBC 4.38 (4.20-5.40) 10^6/uL Hgb 10.8 L (12.0-16.0) g/dL Hct 35.1 L (37.0-47.0) % MCV 80.2 L (81.0-99.0) fL MCH 24.8 L (27.0-31.0) pg MCHC 30.9 L (32.0-36.0) g/dL RDW 18.1 H (12.0-15.0) % Plt Count 322 (130-450) 10^3/uL MPV 8.4 (7.9-10.8) fL Neut # Not Reportable Lymph # Not Reportable [place] # Not Reportable Eos # Not Reportable Baso # Not Reportable Absolute Nucleated RBC Not Reportable Total Counted 100 Band Neuts % (Manual) 11 H (0 - 10) % Abnorm Lymph % (Manual) 1 % Metamyelocytes % 7 H ( - 0) % Myelocytes % 7 H ( - 0) % Neutrophils # (Manual) 32.8 H (1.5-6.6) 10^3/uL Lymphocytes # (Manual) 5.2 H (1.5-3.5) 10^3/uL Monocytes # (Manual) 1.9 H (0.0-1.0) 10^3/uL Basophils # (Manual) 0.5 H (0-0.1) 10^3/uL Nucleated RBCs Not Reportable Differential Comment MANUAL DIFFERENTIAL Platelet Estimate NORMAL (130-450,000) (NORMAL) RBC Morph Micro Appear 1+ OVALOCYTES (NORMAL) Sodium 127 L (135-145) mmol/L Potassium 3.1 L (3.5-5.0) mmol/L Chloride 85 L (101-111) mmol/L Carbon Dioxide 32 (21-32) mmol/L Anion Gap 10.0 (6-13) BUN 27 H (6-20) mg/dL Creatinine 1.3 H (0.4-1.0) mg/dL Estimated GFR (MDRD) 41 L (>89) Glucose 132 H (70-100) mg/dL Calcium 6.8 L (8.5-10.3) mg/dL Magnesium 2.6 (1.7-2.8) mg/dL Total Bilirubin 0.5 (0.2-1.0) mg/dL AST 29 (10-42) IU/L ALT < 10 L (10-60) IU/L Alkaline Phosphatase 104 (42-121) IU/L Total Protein 5.0 L (6.7-8.2) g/dL Albumin 1.6 L (3.2-5.5) g/dL Globulin 3.4 (2.1-4.2) g/dL Albumin/Globulin Ratio 0.5 L (1.0-2.2) Slides for Path Review Indicated Assessment/Plan - Problem List (1) Diarrhea Impression: CT of abdomen reveals marked pancolitis, likely infectious, possibly ulcerative colitis. pt is also with marked elevate WBC, long term care pharmacist to use antibiotics, and from nurse home situation 1, consult with surgeon for evaluation of any possible toxic complication of inflammatory bowel disease. called and left message to 2, C.Diff is suspected, sample was collected, the result is on pending. 3, treat with PO vancomycin 4, clear diet 5, IVF (2) Pneumonia Impression: CT reveals bilateral infiltrate, right lung more than left, right lung with cracker sound. pt is from nurse home and treated with multiple antibiotics for ankle and knee infection. significantly elevated WBC. 1, add zosyn 2, blood culture in pending, will follow up 3, Faithb 4, consult with RT (3) Leukocytosis Impression: pt's WBC 8.3 at 03/07/17 to today 46.9, 03/11/17, significantly increase. it appear from infection of previous postoperative infection, current colitis, or pneumonia. 1, current treatment of vancomycin PO, and Zosyn IV 2, daily CBC 3, blood culture pending, follow up 4, IVF (4) Acute kidney injury Impression: pt's creatinine 1.3 today from 0.6 on 03/07/17, BUN 26 today from <5 on 03/07/17. 1, check total CK 2, continue IVF. pt was already given 2 liter on ER 3, hold nephrotoxic agents 4, check CMP daily 5, will US of retropelvis to check renal (5) Hypertension Impression: stable, reconciliation of home medication, on tele, vital check per protocol (6) Hyponatremia Impression: Na 127 toda. pt did not eat well for three days per pt report, and with diarrhea. IVF of NS, daily check (7) Hypokalemia Impression: today K 3.1 replace with potassium (8) Hypocalcemia Impression: today Ca 6.8, replacement of calcium gluconate, recheck CMP (9) Hematuria Impression: UA analysis reveals moderate hematuria, possible UTI. UTI appear one of the causes or acute kidney injury 1, zosyn for UTI 2, IVF for hydration with LILIYA 3, follow up UA culture.
[2017-03-11] MEDS: ESCITALOPRAM 10 MG TABLET PO SCH (08:54)
[2017-03-11] MEDS: MULTIVITAMIN TABLET PO SCH (08:54)
[2017-03-11] MEDS: PIPERACILLIN/TAZOBACTAM 3.375 GM in SODIUM CHLORIDE 0.9% MINIBAG 100 ML IV SCH ×3 (08:54→20:31)
[2017-03-11] MEDS: CARBIDOPA/LEVODOPA 25 MG/100 MG TABLET PO SCH ×2 (08:54→20:37)
[2017-03-11] MEDS: FELODIPINE ER 2.5 MG TABLET PO SCH (08:54)
[2017-03-11] MEDS: ENOXAPARIN 40 MG/0.4 ML SYRINGE SUBQ SCH (08:54)
[2017-03-11] MEDS ORDERED: FELODIPINE 5 MG PO SCH (09:00)
[2017-03-11] MEDS ORDERED: NON FORMULARY MED (Multivitamin [Multiple Vitamins] 1 TAB) PO SCH (09:00)
[2017-03-11] MEDS ORDERED: MIN OIL/DIMETHICON/COCONUT OIL 92 GM TUBE TOP SCH (09:00)
[2017-03-11] MEDS: POLYETHYLENE GLYCOL 3350 17 GM PACKET PO SCH (09:08)
[2017-03-11] MEDS: POTASSIUM CHLOR 10 MEQ/100 ML 100 ML IV SCH ×4 (10:19→13:11)
--- NOTE | 2017-03-11 11:11 | Ultrasound Report ---
RENAL ULTRASOUND: 03/11/2017 CLINICAL INDICATION: Acute kidney injury. TECHNIQUE: Real-time scanning was performed with human resources hr representative static images obtained. FINDINGS: The right kidney measures 10.2 x 6.5 x 5.3 cm, and the left kidney measures 12.4 x 5.9 x 5 .1 cm. Image quality is degraded by patient body habitus. No hydronephrosis or gross solid renal le alma is appreciated. The urinary bladder is decompressed with a Segura catheter. IMPRESSION: NO EVIDENCE OF HYDRONEPHROSIS. JOB #: [id number] EXT JOB #:[id number]
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
[2017-03-11] MEDS ORDERED: TPN (CLINIMIX E 5/15) 2,000 ML with MULTIVITAMIN 10 ML IV SCH ×2 (15:00)
[2017-03-11] MEDS: MULTIVITAMIN IV SCH (17:14)
[2017-03-11] MEDS: TPN IV SCH (17:14)
[2017-03-11] MEDS ORDERED: TPN (CLINIMIX E 5/15) 2,000 ML IV SCH (19:00)
[2017-03-11] MEDS: TRACE ELEMENTS V CONC 1 ML in SODIUM CHLORIDE 0.9% 50 ML IV SCH (19:11)
[2017-03-11] MEDS: FAT EMULSION 20% 250 ML IV SCH (19:11)
[2017-03-11] MEDS ORDERED: FUROSEMIDE 20 MG/2 ML VIAL IVP SCH (19:50)
[2017-03-12] MEDS: MORPHINE 2 MG/ML CARPUJECT IVP PRN ×10 (00:08→23:42)
[2017-03-12] MEDS: SODIUM CHLORIDE FLUSH 0.9% 10 ML SYRINGE IVP PRN ×5 (00:08→08:27)
[2017-03-12] MEDS: IPRATROPIUM/ALBUTEROL 3 ML NEB INH PRN ×4 (02:04→16:42)
[2017-03-12] MEDS: PIPERACILLIN/TAZOBACTAM 3.375 GM in SODIUM CHLORIDE 0.9% MINIBAG 100 ML IV SCH ×4 (03:31→20:40)
[2017-03-12] MEDS: SODIUM CHLORIDE FLUSH 0.9% 10 ML SYRINGE IVP SCH ×3 (04:15→20:40)
[2017-03-12 06:10] LABS: BASOPHILS % (AUTO) 0.5 %; EOSINOPHILS % (AUTO) 0.9 %; HCT - HEMATOCRIT 34.6 % (37.0-47.0); HGB - HEMOGLOBIN 10.6 g/dL (12.0-16.0); LYMPHOCYTES % (AUTO) 7.8 %; MEAN CORPUSCULAR HEMOGLOBIN 24.7 pg (27.0-31.0); MEAN CORPUSCULAR HGB CONC 30.7 g/dL (32.0-36.0); MEAN CORPUSCULAR VOLUME 80.6 fL (81.0-99.0); MEAN PLATELET VOLUME 8.7 fL (7.9-10.8); MONOCYTES % (AUTO) 3.6 %; NEUTROPHILS % (AUTO) 87.2 %; RED BLOOD COUNT 4.29 10^6/uL (4.20-5.40); RED CELL DISTRIBUTION WIDTH 18.3 % (12.0-15.0)
[2017-03-12] MEDS: PANTOPRAZOLE 40 MG VIAL IVP SCH (06:14)
[2017-03-12 06:16] LABS: ALBUMIN/GLOBULIN RATIO 0.5 (1.0-2.2); BILIRUBIN,TOTAL 0.5 mg/dL (0.2-1.0); BUN - BLOOD UREA NITROGEN 35 mg/dL (6-20); CALCIUM 7.1 mg/dL (8.5-10.3); CARBON DIOXIDE - CO2 29 mmol/L (21-32); CHLORIDE 86 mmol/L (101-111); CREATININE 1.5 mg/dL (0.4-1.0); GFR - MDRD 35 (>89); GLUCOSE 160 mg/dL (70-100); MAGNESIUM 1.8 mg/dL (1.7-2.8); POTASSIUM 3.4 mmol/L (3.5-5.0); SODIUM 126 mmol/L (135-145); TOTAL PROTEIN 5.1 g/dL (6.7-8.2)
[2017-03-12 06:34] LABS: BAND NEUTROPHILS % (MANUAL) 12 %; EOSINOPHILS % (MANUAL) 1 %; LYMPHOCYTES % (MANUAL) 12 %; NEUTROPHILS % (MANUAL) 53 %; TOTAL CELLS COUNTED 100
[2017-03-12 06:35] LABS: NP AUTO DIFFERENTIAL? YES; NP MAN DIFFERENTIAL? NO; PLATELET ESTIMATE, MANUAL NORMAL (130-450,000) (NORMAL)
[2017-03-12] MEDS: BUDESONIDE 0.5 MG/2 ML NEB INH SCH ×2 (07:26→16:42)
[2017-03-12] MEDS: POLYETHYLENE GLYCOL 3350 17 GM PACKET PO SCH (07:32)
[2017-03-12] MEDS ORDERED: POTASSIUM CHLORIDE 20 MEQ/15 ML UDC PO SCH ×2 (08:00→15:00)
[2017-03-12] MEDS ORDERED: CALCIUM GLUCONATE 1,000 MG in SODIUM CHLORIDE 0.9% 50 ML IV ONE (09:00)
[2017-03-12] MEDS: FELODIPINE ER 2.5 MG TABLET PO SCH (10:30)
--- NOTE | 2017-03-12 10:45 | Ultrasound Report ---
BILATERAL LOWER EXTREMITY VENOUS DUPLEX: 03/12/2017 CLINICAL INDICATION: Swelling. TECHNIQUE: Real-time sonographic vascular imaging was performed by the boring machine operator double end through the lower extremities utilizing both color flow and Doppler spectral analysis. Multiple small business representative static i mages were saved for review. FINDINGS: A bilateral lower extremity venous sonogram is performed revealing the common femoral, supe rficial femoral, profunda femoris, and popliteal veins to be adequately visualized without intralumin al defects. There is normal venous compression, augmentation, phasicity, and spontaneity of venous fl ow. In the calf, the visualized more cephalad portions of posterior tibial and peroneal veins are neftaly ssly compressible, without filling defects. Image quality is degraded by swelling. IMPRESSION: NO EVIDENCE OF DEEP VENOUS THROMBOSIS. JOB #: [id number] EXT JOB #:[id number]
[2017-03-12] MEDS: ESCITALOPRAM 10 MG TABLET PO SCH (11:10)
[2017-03-12] MEDS: MULTIVITAMIN TABLET PO SCH (11:10)
[2017-03-12] MEDS: VANCOMYCIN 125 MG CAPSULE PO SCH ×4 (11:11→20:39)
[2017-03-12] MEDS: ENOXAPARIN 40 MG/0.4 ML SYRINGE SUBQ SCH (11:12)
[2017-03-12] MEDS: MIN OIL/DIMETHICON/COCONUT OIL 92 GM TUBE TOP SCH ×2 (11:12→20:40)
[2017-03-12] MEDS: CARBIDOPA/LEVODOPA 25 MG/100 MG TABLET PO SCH ×2 (11:12→20:40)
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
[2017-03-12] MEDS: TPN IV SCH ×2 (13:47→21:26)
[2017-03-12] MEDS: MULTIVITAMIN IV SCH ×2 (13:47→21:26)
[2017-03-12 14:10] LABS: ABG ANALYSIS TIME 1411; ABG HCO3 30.5 mmol/L (22.0-26.0); ABG PCO2 49 mmHg (34-45); ABG PH 7.42 (7.35-7.45); ABG PO2 73 mmHg (80-100)
[2017-03-12 14:11] LABS: ABG BASE EXCESS 5.2 mmol/L (-2.0-3.0); ABG O2 DEVICE NASAL CANNULA; ABG OXYGEN SATURATION 95 % (94-98); ABG SITE OF DRAW RIGHT RADIAL; ALLEN TEST POSITIVE
[2017-03-12] MEDS ORDERED: POTASSIUM CHLORIDE IV ONE (14:53)
[2017-03-12] MEDS ORDERED: SODIUM CHLORIDE 0.9% IV ONE (14:53)
[2017-03-12] MEDS: SODIUM CHLORIDE 1 GM TABLET PO SCH (14:56)
[2017-03-12] MEDS: metroNIDAZOLE 250 MG TABLET PO SCH ×3 (14:56→23:42)
[2017-03-12] MEDS ORDERED: NS W/20 MEQ KCL 1,000 ML IV SCH ×2 (15:00→16:00)
[2017-03-12] MEDS ORDERED: NS W/20 MEQ KCL 1,000 ML IV ONE (15:04)
--- NOTE | 2017-03-12 15:16 | XRAY Report ---
THREE VIEW LEFT ANKLE: 03/12/2017 CLINICAL INDICATION: Postop. FINDINGS: AP, lateral, and oblique views of the left ankle demonstrate external fixator spanning the tibia, the calcaneus, and the cuboids. A minimally displaced avulsion is seen from the medial malleo sacha. Diffuse soft tissue swelling is present. IMPRESSION: EXTERNAL FIXATOR IN PLACE ON THE ANKLE. MARKED SOFT TISSUE SWELLING. JOB #: [id number] EXT JOB #:[id number]
--- NOTE | 2017-03-12 15:17 | XRAY Report ---
TWO-VIEW LEFT KNEE: 03/12/2017 CLINICAL INDICATION: Post-op. COMPARISON: Films of 01/26/2017. FINDINGS: Frontal and lateral views of the left knee demonstrate sideplate and screw fixation of the lateral tibial plateau fracture. Alignment is improved. A moderate joint effusion is noted, and di ffuse soft tissue swelling is present. IMPRESSION: ORIF OF LATERAL TIBIAL PLATEAU FRACTURE, WITH IMPROVEMENT IN ALIGNMENT. DIFFUSE SOFT TI SSUE SWELLING. JOB #: [id number] EXT JOB #:[id number]
[2017-03-12] MEDS ORDERED: MULTIVITAMIN IV SCH (16:00)
[2017-03-12] MEDS ORDERED: VANCOMYCIN 1000 MG RC SCH (16:00)
[2017-03-12] MEDS ORDERED: TPN IV SCH (16:00)
[2017-03-12] MEDS ORDERED: SODIUM CHLORIDE 0.9% PR SCH (16:00)
[2017-03-12] MEDS ORDERED: VANCOMYCIN PR SCH (16:00)
[2017-03-12] MEDS: FAT EMULSION 20% 250 ML IV SCH (20:40)
[2017-03-12] MEDS: TRACE ELEMENTS V CONC 1 ML in SODIUM CHLORIDE 0.9% 50 ML IV SCH (20:40)
--- NOTE | 2017-03-12 20:54 | CT Preliminary Report ---
Exam: CT Abdomen/Pelvis W/O IMPRESSION: 1. Marked diffuse colon wall thickening compatible with pancolitis, infectious versus noninfectious. 2. Small amounts of free fluid tracking along tissue planes, similar to previous exam. 3. Generalized edema, increased. [facility] SITE ID: [id number]
--- NOTE | 2017-03-12 20:57 | CT Report ---
EXAM: CT ABDOMEN AND PELVIS EXAM DATE: 03/12/2017 08:14 PM. CLINICAL HISTORY: Pancolitis. Worsening pain. COMPARISONS: 03/11/2017. TECHNIQUE: Routine helical CT imaging was performed through the abdomen and pelvis. IV contrast: None . Enteric contrast: No. Reconstructions: Coronal and sagittal. In accordance with CT protocol optimization, one or more of the following dose reduction techniques w ere utilized for this exam: automated exposure control, adjustment of mA and/or KV based on patient s ize, or use of iterative reconstructive technique. FINDINGS: Lung Bases: Bibasilar atelectasis. No consolidation or effusion. Liver: Normal. No masses. Gallbladder/Bile Ducts: Surgically absent. No ductal dilation. Spleen: Normal. Pancreas: Normal. Adrenal Glands: Normal. Kidneys: Left renal cyst. Otherwise unremarkable. No stone or hydronephrosis. Peritoneal Cavity/Bowel: Marked diffuse colon wall thickening measuring up to 14 mm in thickness, sim ilar to previous study, with hazy infiltration of adjacent fat generally. No bowel dilation. Small am ounts of free fluid tracking along tissue planes, over liver and spleen, and into the pelvis. No free air or definite lymphadenopathy. Pelvic Organs: Decompressed urinary bladder with Segura catheter in place. Vasculature: No aneurysms or other significant abnormality. Bones: No significant abnormality. Other: Upper anterior abdominal wall hernia with fat involvement only. Evidence of previous abdominal wall surgery. Diffuse hazy infiltration of subcutaneous fat representing edema, increased. IMPRESSION: 1. Marked diffuse colon wall thickening compatible with pancolitis, infectious versus noninfectious. 2. Small amounts of free fluid tracking along tissue planes, similar to previous exam. 3. Generalized edema, increased. [facility] Referring Provider Line: [phone] SITE ID: [id number]
[2017-03-12] MEDS ORDERED: CASPOFUNGIN 70 MG in SODIUM CHLORIDE 0.9% 250 ML IV SCH (22:00)
[2017-03-12 23:22] LABS: PATH REVIEW COMPLETED PATH REVIEW COMPLETE
[2017-03-13] MEDS: MORPHINE 2 MG/ML CARPUJECT IVP PRN ×4 (03:36→19:29)
[2017-03-13] MEDS: PIPERACILLIN/TAZOBACTAM 3.375 GM in SODIUM CHLORIDE 0.9% MINIBAG 100 ML IV SCH ×3 (03:37→15:00)
[2017-03-13] MEDS: VANCOMYCIN 1000 MG PR SCH ×2 (03:37→16:14)
[2017-03-13] MEDS: SODIUM CHLORIDE FLUSH 0.9% 10 ML SYRINGE IVP SCH ×3 (06:12→16:05)
[2017-03-13] MEDS: PANTOPRAZOLE 40 MG VIAL IVP SCH (06:13)
[2017-03-13] MEDS: metroNIDAZOLE 250 MG TABLET PO SCH ×3 (06:13→19:30)
[2017-03-13 06:56] LABS: BASOPHILS % (AUTO) 0.4 %; EOSINOPHILS % (AUTO) 1.5 %; HCT - HEMATOCRIT 30.8 % (37.0-47.0); HGB - HEMOGLOBIN 9.6 g/dL (12.0-16.0); LYMPHOCYTES % (AUTO) 8.5 %; MEAN CORPUSCULAR HEMOGLOBIN 25.1 pg (27.0-31.0); MEAN CORPUSCULAR HGB CONC 31.1 g/dL (32.0-36.0); MEAN CORPUSCULAR VOLUME 80.8 fL (81.0-99.0); MEAN PLATELET VOLUME 8.4 fL (7.9-10.8); MONOCYTES % (AUTO) 3.4 %; NEUTROPHILS % (AUTO) 86.2 %; RED BLOOD COUNT 3.81 10^6/uL (4.20-5.40)
[2017-03-13 07:01] LABS: ALBUMIN/GLOBULIN RATIO 0.5 (1.0-2.2); BILIRUBIN,TOTAL 0.3 mg/dL (0.2-1.0); BUN - BLOOD UREA NITROGEN 42 mg/dL (6-20); CALCIUM 7.3 mg/dL (8.5-10.3); CARBON DIOXIDE - CO2 30 mmol/L (21-32); CHLORIDE 87 mmol/L (101-111); CREATININE 1.3 mg/dL (0.4-1.0); GFR - MDRD 41 (>89); GLUCOSE 114 mg/dL (70-100); POTASSIUM 3.6 mmol/L (3.5-5.0); SODIUM 124 mmol/L (135-145); TOTAL PROTEIN 4.8 g/dL (6.7-8.2)
[2017-03-13] MEDS: BUDESONIDE 0.5 MG/2 ML NEB INH SCH (07:43)
[2017-03-13] MEDS: IPRATROPIUM/ALBUTEROL 3 ML NEB INH PRN ×2 (07:43→16:55)
[2017-03-13 07:48] LABS: BAND NEUTROPHILS % (MANUAL) 16 %; EOSINOPHILS % (MANUAL) 1 %; LYMPHOCYTES % (MANUAL) 13 %; NEUTROPHILS % (MANUAL) 43 %; NP AUTO DIFFERENTIAL? YES; NP MAN DIFFERENTIAL? NO; PLATELET ESTIMATE, MANUAL NORMAL (130-450,000) (NORMAL); TOTAL CELLS COUNTED 100
[2017-03-13] MEDS: POLYETHYLENE GLYCOL 3350 17 GM PACKET PO SCH (07:55)
[2017-03-13] MEDS ORDERED: SODIUM CHLORIDE 0.9% 100ML 100 ML IV ONE (08:34)
[2017-03-13] MEDS: SODIUM CHLORIDE FLUSH 0.9% 10 ML SYRINGE IVP PRN (08:47)
[2017-03-13] MEDS: VANCOMYCIN 125 MG CAPSULE PO SCH ×3 (08:47→17:35)
[2017-03-13] MEDS: ENOXAPARIN 40 MG/0.4 ML SYRINGE SUBQ SCH (08:48)
[2017-03-13] MEDS: CARBIDOPA/LEVODOPA 25 MG/100 MG TABLET PO SCH (08:48)
[2017-03-13] MEDS: ESCITALOPRAM 10 MG TABLET PO SCH (08:48)
[2017-03-13] MEDS: SODIUM CHLORIDE 1 GM TABLET PO SCH ×2 (08:48→10:56)
[2017-03-13] MEDS: FELODIPINE ER 2.5 MG TABLET PO SCH (08:48)
[2017-03-13] MEDS: NYSTATIN 500000 UNITS/5 ML UDC PO SCH ×3 (08:49→17:35)
[2017-03-13] MEDS ORDERED: FUROSEMIDE 20 MG/2 ML VIAL IVP SCH (09:00)
[2017-03-13] MEDS ORDERED: CASPOFUNGIN 50 MG in SODIUM CHLORIDE 0.9% 100ML 100 ML IV SCH (09:00)
[2017-03-13] MEDS: MIN OIL/DIMETHICON/COCONUT OIL 92 GM TUBE TOP SCH (09:25)
[2017-03-13] MEDS ORDERED: TRACE ELEMENTS V CONC 1 ML in SODIUM CHLORIDE 0.9% 50 ML IV SCH (10:00)
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
--- NOTE | 2017-03-13 11:19 | Ultrasound Preliminary Report ---
Exam: US Duplex Ext Veins Left IMPRESSION: No evidence for deep vein thrombosis. [facility] SITE ID: [id number]
--- NOTE | 2017-03-13 11:21 | Ultrasound Report ---
EXAM: LEFT UPPER EXTREMITY VENOUS ULTRASOUND EXAM DATE: 03/13/2017 10:59 AM. CLINICAL HISTORY: Swelling, PICC for long time. DVT, left arm . COMPARISON: None. TECHNIQUE: Real-time sonographic vascular imaging was performed by the rhit through the upper extremity utilizing both color-flow and Doppler spectral analysis. Multiple customer assistance representative static cathi ges were saved for review. FINDINGS: Internal Jugular Vein (IJV): Normal. Subclavian Vein (SCV): Normal. Axillary Vein : Normal. Cephalic Vein (superficial vein): Normal. Basilic Vein (superficial vein): Normal. Left basilic venous PICC is seen. Brachial Vein: Normal. Contralateral Side: Subclavian Vein: Normal. Other: None. IMPRESSION: No evidence for deep vein thrombosis. [facility] Referring Provider Line: [phone] SITE ID: [id number]
--- NOTE | 2017-03-13 11:42 | PROVIDER PROGRESS NOTE ---
Subjective - General Admit Date: 03/11/17 - Review of Systems Pulmonary: positive: Shortness of breath Cardiovascular: positive: No symptoms Gastrointestinal: positive: Diarrhea Genitourinary: positive: Pain (Segura hurts.) Musculoskeletal: positive: Other (Patient is bed bound requiring at least 3 people to move her.) Skin: positive: No symptoms Psychiatric: positive: Anxiety Objective - Patient Data Reviewed Vital Signs: Yes Vital Signs: Vital Signs x48h Temp Pulse Pulse Resp BP BP Pulse Ox 03/13/17 10:56 122/49 L 03/13/17 10:49 37.2 C 81 18 120/105 H 97 03/13/17 07:49 91 20 03/13/17 07:45 36.7 C 90 18 125/56 L 96 03/13/17 04:10 36.6 C 98 18 119/58 L 95 Weight: Weight 03/11/17 03/12/17 03/13/17 23:59 23:59 23:59 Weight (kg) 122.47 kg 122.47 kg Intake & Output: Intake and Output Totals x24h 03/11/17 03/12/17 03/13/17 23:59 23:59 23:59 Intake Total 3542 3094 2418 Output Total 904 525 650 Balance 3310 2834 6058 - Lab Results Lab Results: 03/13/17 06:40 03/13/17 06:40 Other Lab Results: Lab Results x24hrs 03/13/17 03/13/17 03/12/17 Range/Units 06:40 06:40 16:07 WBC 54.0 H* (4.8-10.8) x10^3/uL RBC 3.81 L (4.20-5.40) 10^6/uL Hgb 9.6 L (12.0-16.0) g/dL Hct 30.8 L (37.0-47.0) % MCV 80.8 L (81.0-99.0) fL MCH 25.1 L (27.0-31.0) pg MCHC 31.1 L (32.0-36.0) g/dL RDW 18.0 H (12.0-15.0) % Plt Count 180 (130-450) 10^3/uL MPV 8.4 (7.9-10.8) fL Neut # Not Reportable Lymph # Not Reportable Luna # Not Reportable Eos # Not Reportable Baso # Not Reportable Absolute Nucleated RBC Not Reportable Total Counted 100 Band Neuts % (Manual) 16 H (0 - 10) % Metamyelocytes % 8 H ( - 0) % Myelocytes % 12 H ( - 0) % Promyelocytes % 1 H ( - 0) % Neutrophils # (Manual) 31.9 H (1.5-6.6) 10^3/uL Lymphocytes # (Manual) 7.0 H (1.5-3.5) 10^3/uL Monocytes # (Manual) 3.2 H (0.0-1.0) 10^3/uL Eosinophils # (Manual) 0.5 (0-0.7) 10^3/uL Nucleated RBCs Not Reportable Differential Comment MANUAL DIFFERENTIAL Platelet Estimate NORMAL (130-450,000) (NORMAL) RBC Morph Micro Appear 1+ POLYCHROMASIA (NORMAL) Hematology Spec Commnt Bld Gas Analysis Time Sample Site ABG pH (7.35-7.45) ABG pCO2 (34-45) mmHg ABG pO2 (80-100) mmHg ABG HCO3 (22.0-26.0) mmol/L ABG Total CO2 (21.0-29.0) MMOL/L ABG O2 Saturation (94-98) % ABG Base Excess (-2.0-3.0) mmol/L Erick Test O2 Delivery Device O2 Liters/Min LPM Sodium 124 L (135-145) mmol/L Potassium 3.6 (3.5-5.0) mmol/L Chloride 87 L (101-111) mmol/L Carbon Dioxide 30 (21-32) mmol/L Anion Gap 7.0 (6-13) BUN 42 H (6-20) mg/dL Creatinine 1.3 H (0.4-1.0) mg/dL Estimated GFR (MDRD) 41 L (>89) Glucose 114 H (70-100) mg/dL Lactic Acid 1.7 (0.5-2.2) mmol/L Calcium 7.3 L (8.5-10.3) mg/dL Magnesium 2.0 (1.7-2.8) mg/dL Total Bilirubin 0.3 (0.2-1.0) mg/dL AST 44 H (10-42) IU/L ALT < 10 L (10-60) IU/L Alkaline Phosphatase 98 (42-121) IU/L Total Protein 4.8 L (6.7-8.2) g/dL Albumin 1.6 L (3.2-5.5) g/dL Globulin 3.2 (2.1-4.2) g/dL Albumin/Globulin Ratio 0.5 L (1.0-2.2) Slides for Path Review 03/12/17 03/11/17 Range/Units 14:05 06:49 WBC (4.8-10.8) x10^3/uL RBC (4.20-5.40) 10^6/uL Hgb (12.0-16.0) g/dL Hct (37.0-47.0) % MCV (81.0-99.0) fL MCH (27.0-31.0) pg MCHC (32.0-36.0) g/dL RDW (12.0-15.0) % Plt Count (130-450) 10^3/uL MPV (7.9-10.8) fL Neut # Lymph # Luna # Eos # Baso # Absolute Nucleated RBC Total Counted Band Neuts % (Manual) (0 - 10) % Metamyelocytes % ( - 0) % Myelocytes % ( - 0) % Promyelocytes % ( - 0) % Neutrophils # (Manual) (1.5-6.6) 10^3/uL Lymphocytes # (Manual) (1.5-3.5) 10^3/uL Monocytes # (Manual) (0.0-1.0) 10^3/uL Eosinophils # (Manual) (0-0.7) 10^3/uL Nucleated RBCs Differential Comment Platelet Estimate (NORMAL) RBC Morph Micro Appear (NORMAL) Hematology Spec Commnt 03-11-17 0039 Bld Gas Analysis Time 1411 Sample Site RIGHT RADIAL ABG pH 7.42 (7.35-7.45) ABG pCO2 49 H (34-45) mmHg ABG pO2 73 L (80-100) mmHg ABG HCO3 30.5 H (22.0-26.0) mmol/L ABG Total CO2 32.0 H (21.0-29.0) MMOL/L ABG O2 Saturation 95 (94-98) % ABG Base Excess 5.2 H (-2.0-3.0) mmol/L Erick Test POSITIVE O2 Delivery Device NASAL CANNULA O2 Liters/Min 2.00 LPM Sodium (135-145) mmol/L Potassium (3.5-5.0) mmol/L Chloride (101-111) mmol/L Carbon Dioxide (21-32) mmol/L Anion Gap (6-13) BUN (6-20) mg/dL Creatinine (0.4-1.0) mg/dL Estimated GFR (MDRD) (>89) Glucose (70-100) mg/dL Lactic Acid (0.5-2.2) mmol/L Calcium (8.5-10.3) mg/dL Magnesium (1.7-2.8) mg/dL Total Bilirubin (0.2-1.0) mg/dL AST (10-42) IU/L ALT (10-60) IU/L Alkaline Phosphatase (42-121) IU/L Total Protein (6.7-8.2) g/dL Albumin (3.2-5.5) g/dL Globulin (2.1-4.2) g/dL Albumin/Globulin Ratio (1.0-2.2) Slides for Path Review SEE SEPARATE REPORT - Current Medications Current Medications: Current Medications Generic Name Dose Route Start Last Admin Trade Name Freq PRN Reason Stop Dose Admin Albuterol/Ipratropium 3 ml 03/11/17 02:41 03/13/17 07:43 Duoneb INH 3 ml RTQID PRN Administration Shortness of Air/Wheezing Budesonide 0.5 mg 03/11/17 07:00 03/13/17 07:43 Pulmicort INH 0.5 mg RTBID ZULY Administration Carbidopa/Levodopa 1 tab 03/11/17 09:00 03/13/17 08:48 Sinemet 25 Mg/100 Mg PO 1 tab BID ZULY Administration Enoxaparin Sodium 40 mg 03/11/17 09:00 03/13/17 08:48 Lovenox SUBQ 40 mg DAILY ZULY Administration Escitalopram Oxalate 30 mg 03/11/17 09:00 03/13/17 08:48 Lexapro PO 30 mg DAILY ZULY Administration Felodipine 5 mg 03/11/17 09:00 03/13/17 08:48 Plendil PO 5 mg DAILY ZULY Administration Furosemide 20 mg 03/13/17 09:00 03/13/17 08:47 Lasix Inj 20mg Vial IVP 20 mg DAILY ZULY Administration Piperacillin Sod/Tazobactam 100 mls @ 200 mls/hr 03/11/17 09:00 03/13/17 10:55 Sod 3.375 gm/ Sodium Chloride IV 200 mls/hr Q6H ZULY Administration Fat Emulsion Intravenous 250 mls @ 21 mls/hr 03/11/17 19:00 03/12/17 20:40 Intralipid 20% IV 21 mls/hr Q24H ZULY Administration Multivitamins 10 ml/ Amino Ac/ 2,010 mls @ 83 mls/hr 03/11/17 16:30 03/12/17 21 :26 Electrol/Dextrose/Calcium IV 03/13/17 12:59 83 mls/hr .[id number] ZULY Administration Protocol Potassium Chloride/Sodium Chloride 1,000 mls @ 50 mls/hr 03/12/17 16:00 17:09 Normal Saline 0.9% W/20 Meq Kcl IV 50 mls/hr .Q20H ZULY Administration Caspofungin 50 mg/ Sodium 100 mls @ 100 mls/hr 03/13/17 09:00 03/13/17 09:17 Chloride IV 100 mls/hr DAILY ZULY Administration Chromium/Copper/Manganese/ 51 mls @ 100 mls/hr 03/13/17 10:00 03/13/17 10:04 Seleni/Zn 1 ml/ Sodium IV 100 mls/hr Chloride DAILY ZULY Administration Metronidazole 500 mg 03/12/17 15:00 03/13/17 06:13 Flagyl PO 03/22/17 23:55 500 mg Q6HR ZULY Administration Mineral Oil 1 applic 03/11/17 06:44 03/13/17 09:25 Cavilon TOP 1 applic BID ZULY Administration Morphine Sulfate 4 mg 03/11/17 06:17 03/13/17 10:03 Morphine IVP 4 mg Q2HR PRN Administration PAIN Nystatin 5 ml 03/13/17 09:00 03/13/17 08:49 Mycostatin PO 5 ml QID ZULY Administration Ondansetron HCl 4 mg 03/11/17 02:22 03/12/17 04:15 Zofran Inj IVP 4 mg Q4HR PRN Administration Nausea / Vomiting Pantoprazole Sodium 40 mg 03/11/17 07:00 03/13/17 06:13 Protonix IVP 40 mg QDAC ZULY Administration Polyethylene Glycol 17 gm 03/11/17 09:00 03/13/17 07:55 Miralax PO Not Given DAILY ZULY Sodium Chloride 10 ml 03/11/17 02:22 03/13/17 08:47 Normal Saline Flush 0.9% IVP 10 ml PRN PRN Administration NEEDED PER PROVIDER ORDERS Sodium Chloride 10 ml 03/11/17 06:00 03/13/17 06:12 Normal Saline Flush 0.9% IVP 10 ml Q8HR ZULY Administration Sodium Chloride 1 gm 03/12/17 15:00 03/13/17 10:56 Salt Tab PO 1 gm DAILY ZULY Administration Vancomycin HCl 500 mg 03/12/17 14:16 03/13/17 08:47 Vancocin PO 03/22/17 23:55 500 mg QID ZULY Administration Vancomycin HCl 1 gm 03/13/17 04:00 03/13/17 03:37 Vancomycin OK 1 gm Q12H ZULY Administration - Physical Exam General Appearance: positive: Mild distress Eyes Bilateral: positive: No lid inflammation, Conjunctivae nml, No scleral icterus Neck: positive: Trachea midline Respiratory: positive: Other (Shallow breathing.) Cardiovascular: positive: Regular rate & rhythm Abdomen: positive: Non-tender (No peritoneal findings. Obese.), Abnml bowel sounds (Markedly decreased bowel sounds.) Neurologic/Psychiatric: positive: Oriented x3 (Transiently oriented.) Impression/Plan - Problem List Problem List: Hospital day 2 for multiple issues (not a complete list): Clostridium difficile colitis Orthopedic injuries including left tib-fib and ankle fracture History of osteomyelitis Obesity Immobility Hyponatremia Hypocalcemia Protein malnutrition Starting yesterday the dose of vancomycin was quadrupled in terms of what was given orally and Flagyl was also added to the mix. Additionally I instituted vancomycin enemas. Studies have been equivocal as whether or not these are beneficial but considering this patient's condition I thought it prudent to attempt every nonsurgical approach towards correcting her C. difficile colitis. Clinically there is little if any improvement. Consideration should be given for FMT but it is my understanding that we do not do this at our hospital. Fecal transplants (FMT) have been shown to be quite helpful in patients with Clostridium difficile colitis whose infection remains resistant to antibiotic treatment. I am even more concerned about her obesity and immobility. With her concurrent orthopedic injuries and her weight contributing to her near-total immobility she has at extremely high risk for the development of decubitus ulcers, urinary tract infection (with a chronic indwelling Segura and concurrent infection), pneumonia, and DVT. We do not have the required personnel to move a patient of her size. The bed that she is currently on is not one that will help prevent the development of decubitus ulcers. In addition prior to her admission here she spent quite some time at [facility] where she was immobile. When I consider her comorbidities and our lack of resources to take care of a patient such as herself I conclude that her care would be better in an institution that had the ability to do fecal transplant AND that had the ability and resources to take care of a patient of her size with her comorbidities. I do not think that just her care would be better but her already high morbidity and mortality figures would improve. Karen disclaimer: Part of this medical record were created using voice recognition technology. Because of the inherent limitations of the system, occasional same sounding word substitutions do occur and persist despite proofreading. Please read this document for context.
--- NOTE | 2017-03-13 12:31 | PROVIDER PROGRESS NOTE ---
Subjective - Prog Note Date Prog Note Date: 03/13/17 - Subjective Pt reports feeling: Improved Subjective: pt appear more energy than yesterday to answer questions. Current Medications - Current Medications Current Medications: Active Medications Acetaminophen (Tylenol) 650 mg PO Q4HR PRN PRN Reason: Pain 1 to 4 Albuterol/Ipratropium (Duoneb) 3 ml INH RTQID PRN PRN Reason: Shortness of Air/Wheezing Last Admin: 03/13/17 07:43 Dose: 3 ml Budesonide (Pulmicort) 0.5 mg INH RTBID [facility] Last Admin: 03/13/17 07:43 Dose: 0.5 mg Carbidopa/Levodopa (Sinemet 25 Mg/100 Mg) 1 tab PO BID [facility] Last Admin: 03/13/17 08:48 Dose: 1 tab Enoxaparin Sodium (Lovenox) 40 mg SUBQ DAILY [facility] Last Admin: 03/13/17 08:48 Dose: 40 mg Escitalopram Oxalate (Lexapro) 30 mg PO DAILY [facility] Last Admin: 03/13/17 08:48 Dose: 30 mg Felodipine (Plendil) 5 mg PO DAILY [facility] Last Admin: 03/13/17 08:48 Dose: 5 mg Furosemide (Lasix Inj 20mg Vial) 20 mg IVP DAILY [facility] Last Admin: 03/13/17 08:47 Dose: 20 mg Piperacillin Sod/Tazobactam (Sod 3.375 gm/ Sodium Chloride) 100 mls @ 200 mls/ hr IV Q6H [facility] Last Admin: 03/13/17 10:55 Dose: 200 mls/hr Fat Emulsion Intravenous (Intralipid 20%) 250 mls @ 21 mls/hr IV Q24H [facility] Last Admin: 03/12/17 20:40 Dose: 21 mls/hr Multivitamins 10 ml/ Amino Ac/ (Electrol/Dextrose/Calcium) 2,010 mls @ 83 mls/ hr IV .[id number] [facility] PRN Reason: Protocol Stop: 03/13/17 12:59 Last Admin: 03/12/17 21:26 Dose: 83 mls/hr Potassium Chloride/Sodium Chloride (Normal Saline 0.9% W/20 Meq Kcl) 1,000 mls @ 50 mls/hr IV .Q20H [facility] Last Admin: 03/12/17 17:09 Dose: 50 mls/hr Caspofungin 50 mg/ Sodium (Chloride) 100 mls @ 100 mls/hr IV DAILY [facility] Last Admin: 03/13/17 09:17 Dose: 100 mls/hr Chromium/Copper/Manganese/Seleni/Zn 1 ml/ Sodium Chloride 51 mls @ 100 mls/hr IV DAILY [facility] Last Admin: 03/13/17 10:04 Dose: 100 mls/hr Multivitamins 10 ml/ Amino Ac/ (Electrol/Dextrose/Calcium) 2,010 mls @ 83 mls/ hr IV Q24H [facility] PRN Reason: Protocol Calcium Gluconate 1,000 mg/ (Sodium Chloride) 60 mls @ 240 mls/hr IV ONCE [facility] Stop: 03/13/17 14:00 Metronidazole (Flagyl) 500 mg PO Q6HR [facility] Stop: 03/22/17 23:55 Last Admin: 03/13/17 06:13 Dose: 500 mg Mineral Oil (Cavilon) 1 applic TOP BID [facility] Last Admin: 03/13/17 09:25 Dose: 1 applic Morphine Sulfate (Morphine) 4 mg IVP Q2HR PRN PRN Reason: PAIN Last Admin: 03/13/17 10:03 Dose: 4 mg Nystatin (Mycostatin) 5 ml PO QID [facility] Last Admin: 03/13/17 08:49 Dose: 5 ml Ondansetron HCl (Zofran Inj) 4 mg IVP Q4HR PRN PRN Reason: Nausea / Vomiting Last Admin: 03/12/17 04:15 Dose: 4 mg Pantoprazole Sodium (Protonix) 40 mg IVP QDAC [facility] Last Admin: 03/13/17 06:13 Dose: 40 mg Polyethylene Glycol (Miralax) 17 gm PO DAILY [facility] Last Admin: 03/13/17 07:55 Dose: Not Given Sodium Chloride (Normal Saline Flush 0.9%) 10 ml IVP PRN PRN PRN Reason: NEEDED PER PROVIDER ORDERS Last Admin: 03/13/17 08:47 Dose: 10 ml Sodium Chloride (Normal Saline Flush 0.9%) 10 ml IVP Q8HR [facility] Last Admin: 03/13/17 11:42 Dose: Not Given Sodium Chloride (Salt Tab) 1 gm PO DAILY [facility] Last Admin: 03/13/17 10:56 Dose: 1 gm Vancomycin HCl (Vancocin) 500 mg PO QID [facility] Stop: 03/22/17 23:55 Last Admin: 03/13/17 08:47 Dose: 500 mg Vancomycin HCl (Vancomycin) 1 gm GA Q12H [facility] Last Admin: 03/13/17 03:37 Dose: 1 gm Omeprazole [Prilosec] 20 mg PO BID 06/02/13 Acetaminophen [Tylenol Extra Strength] 1,000 mg PO TID 02/23/17 Albuterol Sulf [Ventolin Hfa Inhaler] 2 puffs PO Q4H PRN 02/23/17 Beclomethasone 80 Mcg [Qvar 80] 2 puffs PO BID 02/23/17 Carbidopa/Levodopa 25/100 [Sinemet 25 mg/100 mg] 1 tab PO DAILY 02/23/17 Enoxaparin [Lovenox] 40 mg SQ BID 02/23/17 Ergocalciferol [Vitamin D2] 50,000 cap PO Q7D 02/23/17 Escitalopram Oxalate 30 mg PO DAILY 02/23/17 Felodipine [Felodipine ER] 5 mg PO DAILY 02/23/17 Gabapentin 300 mg PO DAILY PM 02/23/17 Lactobacillus Acidophilus [Acidophilus] 1 cap PO DAILY 02/23/17 Levofloxacin [Levaquin] 750 mg PO DAILY 02/23/17 Melatonin 3 mg PO DAILY PRN 02/23/17 Multivitamin [Multiple Vitamins] 1 tab PO DAILY 02/23/17 Nebivolol HCl [Bystolic] 5 mg PO DAILY 02/23/17 Polyethylene Glycol 3350 [Miralax] 17 gm PO BID 02/23/17 Psyllium Husk (with Sugar) [Natural Fiber Laxative Powder] 1 packet PO DAILY 08/11 Triamterene/Hydrochlorothiazid [Maxzide 37.5 mg-25 mg Tablet] 1 tab PO DAILY 08/11 Vancomycin/0.9 % Sod Chloride [Vanco 1 Gram/250 ml-0.9% NaCl] 1 gm IV Q12H 02/23 Carbidopa/Levodopa [Carbidopa-Levo ER 25-100 Tab] 2 tab PO DAILY PM 03/11/17 Furosemide [Furosemide] 40 mg PO DAILY 03/11/17 Hydrocodone/Acetaminophen [Hydrocodon-Acetaminophen 5-325] 1 tab PO Q4H PRN Potassium Chloride 20 meq PO DAILY 03/11/17 Objective - Vital Signs/Intake & Output Vital Signs: Vital Signs x48h Temp Pulse Pulse Resp BP Pulse Ox 03/13/17 10:56 122/49 L 03/13/17 10:49 37.2 C 81 18 120/105 H 97 03/13/17 07:49 91 20 03/13/17 07:45 36.7 C 90 18 125/56 L 96 Intake & Output: Intake & Output 03/10/17 03/11/17 03/12/17 03/13/17 23:59 23:59 23:59 23:59 Intake Total 3542 3094 2418 Output Total 850 525 650 Balance 2692 3169 5468 - Objective General Appearance: positive: Alert, Mild distress. negative: Lethargic Eyes Bilateral: positive: Normal inspection, PERRL. negative: No lid inflammation, Conjunctivae nml ENT: positive: ENT inspection nml, No signs of dehydration, Other (it appear mild white patch at left laterial of around pharynx area) Neck: positive: Nml inspection, Thyroid nml, Trachea midline. negative: Lymphadenopathy (R), Lymphadenopathy (L), Swelling/bruising Respiratory: positive: Chest non-tender, No respiratory distress, Other ( decreased lung sound bilaterally) Cardiovascular: positive: Regular rate & rhythm, No murmur, No gallop. negative : Systolic murmur, Diastolic murmur Peripheral Pulses: 2+ Radial (R), 2+ Radial (L), 2+ Dorsalis pedis (R), 2+ Dorsalis pedis (L) Abdomen: positive: Non-tender, Other (difficult to be heard bowel sounds). negative: Guarding, Rebound Back: positive: Nml inspection Skin: positive: Warm, Dry, Skin rash, Other (mild to moderate erythema, mild to moderate swelling, warm at bilateral lower extremities) Extremities: positive: Pedal edema. negative: Calf tenderness, Dominique's sign/ cords Neurologic/Psychiatric: positive: Sensation nml, Weakness, Other. negative: Sensory loss, Facial droop, Slurred/abnml speech - Lab Results Fish Bones: 03/13/17 06:40 03/13/17 06:40 Other Labs: Lab Results x24hrs 03/13/17 03/13/17 03/12/17 Range/Units 06:40 06:40 16:07 WBC 54.0 H* (4.8-10.8) x10^3/uL RBC 3.81 L (4.20-5.40) 10^6/uL Hgb 9.6 L (12.0-16.0) g/dL Hct 30.8 L (37.0-47.0) % MCV 80.8 L (81.0-99.0) fL MCH 25.1 L (27.0-31.0) pg MCHC 31.1 L (32.0-36.0) g/dL RDW 18.0 H (12.0-15.0) % Plt Count 180 (130-450) 10^3/uL MPV 8.4 (7.9-10.8) fL Neut # Not Reportable Lymph # Not Reportable Divide # Not Reportable Eos # Not Reportable Baso # Not Reportable Absolute Nucleated RBC Not Reportable Total Counted 100 Band Neuts % (Manual) 16 H (0 - 10) % Metamyelocytes % 8 H ( - 0) % Myelocytes % 12 H ( - 0) % Promyelocytes % 1 H ( - 0) % Neutrophils # (Manual) 31.9 H (1.5-6.6) 10^3/uL Lymphocytes # (Manual) 7.0 H (1.5-3.5) 10^3/uL Monocytes # (Manual) 3.2 H (0.0-1.0) 10^3/uL Eosinophils # (Manual) 0.5 (0-0.7) 10^3/uL Nucleated RBCs Not Reportable Differential Comment MANUAL DIFFERENTIAL Platelet Estimate NORMAL (130-450,000) (NORMAL) RBC Morph Micro Appear 1+ POLYCHROMASIA (NORMAL) Hematology Spec Commnt Bld Gas Analysis Time Sample Site ABG pH (7.35-7.45) ABG pCO2 (34-45) mmHg ABG pO2 (80-100) mmHg ABG HCO3 (22.0-26.0) mmol/L ABG Total CO2 (21.0-29.0) MMOL/L ABG O2 Saturation (94-98) % ABG Base Excess (-2.0-3.0) mmol/L Erick Test O2 Delivery Device O2 Liters/Min LPM Sodium 124 L (135-145) mmol/L Potassium 3.6 (3.5-5.0) mmol/L Chloride 87 L (101-111) mmol/L Carbon Dioxide 30 (21-32) mmol/L Anion Gap 7.0 (6-13) BUN 42 H (6-20) mg/dL Creatinine 1.3 H (0.4-1.0) mg/dL Estimated GFR (MDRD) 41 L (>89) Glucose 114 H (70-100) mg/dL Lactic Acid 1.7 (0.5-2.2) mmol/L Calcium 7.3 L (8.5-10.3) mg/dL Magnesium 2.0 (1.7-2.8) mg/dL Total Bilirubin 0.3 (0.2-1.0) mg/dL AST 44 H (10-42) IU/L ALT < 10 L (10-60) IU/L Alkaline Phosphatase 98 (42-121) IU/L Total Protein 4.8 L (6.7-8.2) g/dL Albumin 1.6 L (3.2-5.5) g/dL Globulin 3.2 (2.1-4.2) g/dL Albumin/Globulin Ratio 0.5 L (1.0-2.2) Slides for Path Review 03/12/17 03/11/17 Range/Units 14:05 06:49 WBC (4.8-10.8) x10^3/uL RBC (4.20-5.40) 10^6/uL Hgb (12.0-16.0) g/dL Hct (37.0-47.0) % MCV (81.0-99.0) fL MCH (27.0-31.0) pg MCHC (32.0-36.0) g/dL RDW (12.0-15.0) % Plt Count (130-450) 10^3/uL MPV (7.9-10.8) fL Neut # Lymph # Divide # Eos # Baso # Absolute Nucleated RBC Total Counted Band Neuts % (Manual) (0 - 10) % Metamyelocytes % ( - 0) % Myelocytes % ( - 0) % Promyelocytes % ( - 0) % Neutrophils # (Manual) (1.5-6.6) 10^3/uL Lymphocytes # (Manual) (1.5-3.5) 10^3/uL Monocytes # (Manual) (0.0-1.0) 10^3/uL Eosinophils # (Manual) (0-0.7) 10^3/uL Nucleated RBCs Differential Comment Platelet Estimate (NORMAL) RBC Morph Micro Appear (NORMAL) Hematology Spec Commnt 03-11-17 0535 Bld Gas Analysis Time 1411 Sample Site RIGHT RADIAL ABG pH 7.42 (7.35-7.45) ABG pCO2 49 H (34-45) mmHg ABG pO2 73 L (80-100) mmHg ABG HCO3 30.5 H (22.0-26.0) mmol/L ABG Total CO2 32.0 H (21.0-29.0) MMOL/L ABG O2 Saturation 95 (94-98) % ABG Base Excess 5.2 H (-2.0-3.0) mmol/L Erick Test POSITIVE O2 Delivery Device NASAL CANNULA O2 Liters/Min 2.00 LPM Sodium (135-145) mmol/L Potassium (3.5-5.0) mmol/L Chloride (101-111) mmol/L Carbon Dioxide (21-32) mmol/L Anion Gap (6-13) BUN (6-20) mg/dL Creatinine (0.4-1.0) mg/dL Estimated GFR (MDRD) (>89) Glucose (70-100) mg/dL Lactic Acid (0.5-2.2) mmol/L Calcium (8.5-10.3) mg/dL Magnesium (1.7-2.8) mg/dL Total Bilirubin (0.2-1.0) mg/dL AST (10-42) IU/L ALT (10-60) IU/L Alkaline Phosphatase (42-121) IU/L Total Protein (6.7-8.2) g/dL Albumin (3.2-5.5) g/dL Globulin (2.1-4.2) g/dL Albumin/Globulin Ratio (1.0-2.2) Slides for Path Review SEE SEPARATE REPORT Assessment/Plan - Problem List (1) Pancolitis Impression: - Problem List (1) Diarrhea Impression: repeat CT on last night appear no significant changing. Discuss the patient's medical condition with and . We believe patient need higher level of care which we can not provider on here. I called and [facility] where patient was previously cared. I present the following medical conditions to them: patient need higher level of care which we can not provider on here, patient may need fecal transplants, per our surgeon's suggestion, which we do not do it in here, Patient has another major medical issue of obesity and immobility, We could not provide personnel and equipment to remove the patient as the size of patient, We do not have air mattress, because of patient's immobility, severe medical complications could develop such as decubitus ulcer, DVT, pneumonia. [facility] request patient's CT to them. We did sent it to them. They told me they will call me. I did not receive any further phone call from them yet. repeat of CT without significant changing. add caspofungin, pt is bull and TPN by PICC add Nystatin soln PRN for mouth thrush increase of dosage of vancomycin PO, add PO flagyl CT of abdomen reveals marked pancolitis, likely infectious, possibly ulcerative colitis. 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 called and left message to 2, C.Diff is suspected, sample was collected, the result is on pending. 3, treat with PO vancomycin 4, clear diet 5, IVF (2) Pneumonia Impression: lung appear better, continue on zosyn, add IV vancomycin CT reveals bilateral infiltrate, right lung more than left, right lung with cracker sound. pt is from nurse home and treated with multiple antibiotics for ankle and knee infection. significantly elevated WBC. 1, add zosyn 2, blood culture in pending, will follow up 3, Duoneb 4, consult with RT (3) Leukocytosis Impression: WBC from yesterday 57 down to today 54, add IV vancomycin per surgeon pt's WBC 8.3 at 03/07/17 to today 46.9, 03/11/17, significantly increase. it appear from infection of previous postoperative infection, current colitis, or pneumonia. 1, current treatment of vancomycin PO, and Zosyn IV 2, daily CBC 3, blood culture pending, follow up 4, IVF (4) Acute kidney injury Impression: creatinine to 1.3 today, BUN 42. closely monitor, check vancomycin through pt's creatinine 1.3 today from 0.6 on 03/07/17, BUN 26 today from <5 on 03/07/17. 1, check total CK 2, continue IVF. pt was already given 2 liter on ER 3, hold nephrotoxic agents 4, check CMP daily 5, will US of retropelvis to check renal (5) Hypertension Impression: stable, reconciliation of home medication, on tele, vital check per protocol (6) Hyponatremia Impression: today is 124, add 1 gram NaCl, low dosage of lasix to let fluid out Na 127 toda. pt did not eat well for three days per pt report, and with diarrhea. IVF of NS, daily check (7) Hypokalemia Impression: today 3.6, corrected today K 3.1 replace with potassium (8) Hypocalcemia Impression: improved, add 1 gram calcium gluconate today Ca 6.8, replacement of calcium gluconate, recheck CMP (9) Hematuria Impression: will closely monitor, follow up UA UA analysis reveals moderate hematuria, possible UTI. UTI appear one of the causes or acute kidney injury 1, zosyn for UTI 2, IVF for hydration with LILIYA 3, follow up UA culture.
[2017-03-13] MEDS ORDERED: TPN (CLINIMIX E 5/15) 2,000 ML with MULTIVITAMIN 10 ML IV SCH ×2 (13:00)
[2017-03-13] MEDS ORDERED: CALCIUM GLUCONATE 1,000 MG in SODIUM CHLORIDE 0.9% 50 ML IV SCH (13:00)
[2017-03-13 15:52] VITALS: BP 112/50
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
== END 2017-03-13 19:30 | disposition short-term general hospital (02) | DRG 385 ==
LOC: EDUNIT# → SUPCPDRO 23:05 → ED 23:05 → MS2 03-11 02:22
PROVIDERS: ADMIT Internal Medicine; ATTEND Nurse Practitioner Gerontology
PROC: 3E0436Z Introduction of Nutritional Substance into Central Vein, Percutaneous Approach (ICD-10-PCS; principal; 2017-03-11)
DX: K52.89 Other specified noninfective gastroenteritis and colitis (principal); K51.00 Ulcerative (chronic) pancolitis without complications; J18.9 Pneumonia, unspecified organism; N17.9 Acute kidney failure, unspecified; E86.0 Dehydration; Z68.41 Body mass index [BMI] 40.0-44.9, adult; M86.9 Osteomyelitis, unspecified; E83.42 Hypomagnesemia; E87.1 Hypo-osmolality and hyponatremia; E46 Unspecified protein-calorie malnutrition; B37.0 Candidal stomatitis; E66.9 Obesity, unspecified; N39.0 Urinary tract infection, site not specified; Z79.899 Other long term (current) drug therapy; T81.4XXA Infection following a procedure, initial encounter; E83.51 Hypocalcemia; E87.6 Hypokalemia; E87.8 Other disorders of electrolyte and fluid balance, not elsewhere classified; R31.9 Hematuria, unspecified; S82.52 Displaced fracture of medial malleolus of left tibia; S82.832E Other fracture of upper and lower end of left fibula, subsequent encounter for open fracture type I or II with routine healing; S82.142D Displaced bicondylar fracture of left tibia, subsequent encounter for closed fracture with routine healing; A04.7 Enterocolitis due to Clostridium difficile; I12.9 Hypertensive chronic kidney disease with stage 1 through stage 4 chronic kidney disease, or unspecified chronic kidney disease; N18.9 Chronic kidney disease, unspecified; E66.01 Morbid (severe) obesity due to excess calories; M54.9 Dorsalgia, unspecified; G89.29 Other chronic pain; E78.00 Pure hypercholesterolemia, unspecified; G47.30 Sleep apnea, unspecified; K21.9 Gastro-esophageal reflux disease without esophagitis; F32.9 Major depressive disorder, single episode, unspecified; R09.02 Hypoxemia; G31.84 Mild cognitive impairment of uncertain or unknown etiology; Z96.0 Presence of urogenital implants; Z90.49 Acquired absence of other specified parts of digestive tract; Z90.710 Acquired absence of both cervix and uterus; Z87.891 Personal history of nicotine dependence; Z74.01 Bed confinement status; S82.892E Other fracture of left lower leg, subsequent encounter for open fracture type I or II with routine healing; S82.142 Displaced bicondylar fracture of left tibia; L08.9 Local infection of the skin and subcutaneous tissue, unspecified; Z87.81 Personal history of (healed) traumatic fracture; Z95.828 Presence of other vascular implants and grafts
CPT/HCPCS: 36415; 36600; 71010; 74176; 76770; 80053; 81001; 81003; 82550; 82803; 83519; 83605; 83630; 83690; 83735; 83880; 84100; 84484; 85025; 87040; 87045; 87046; 87086; 87177; 87209; 87493; 93005; 93970; 94640; 96361; 96374; 96375; 99284; 99285; 99291

== ENCOUNTER 2017-04-08 12:01 | Outpatient (CLI) | payer MEDICARE | END 2017-04-08 12:02 | disposition home or self-care (01) | LOC: LAB.R 12:01 | DX: A04.7 Enterocolitis due to Clostridium difficile (principal) | CPT/HCPCS: 87493 ==

== ENCOUNTER 2017-04-14 08:51 | Outpatient (CLI) | payer MEDICARE, OTHER ==
[2017-04-14 22:01] LABS: BASOPHILS # (AUTO) 0.1 10^3/uL (0.0-0.1); BASOPHILS % (AUTO) 0.7 %; EOSINOPHILS # (AUTO) 0.1 10^3/uL (0.0-0.7); HCT - HEMATOCRIT 31.5 % (37.0-47.0); HGB - HEMOGLOBIN 10.1 g/dL (12.0-16.0); LYMPHOCYTES # (AUTO) 3.8 10^3/uL (1.5-3.5); LYMPHOCYTES % (AUTO) 27.5 %; MEAN CORPUSCULAR HEMOGLOBIN 24.8 pg (27.0-31.0); MEAN CORPUSCULAR HGB CONC 32.1 g/dL (32.0-36.0); MEAN CORPUSCULAR VOLUME 77.2 fL (81.0-99.0); MEAN PLATELET VOLUME 8.2 fL (7.9-10.8); MONOCYTES # (AUTO) 1.1 10^3/uL (0.0-1.0); MONOCYTES % (AUTO) 8.3 %; NEUTROPHILS # (AUTO) 8.6 10^3/uL (1.5-6.6); NEUTROPHILS % (AUTO) 62.5 %; RED BLOOD COUNT 4.08 10^6/uL (4.20-5.40); RED CELL DISTRIBUTION WIDTH 21.2 % (12.0-15.0); UNCORRECTED WHITE BLOOD COUNT 13.7 x10^3/uL; WHITE BLOOD COUNT 13.7 x10^3/uL (4.8-10.8)
[2017-04-14 22:24] LABS: PLATELET ESTIMATE, MANUAL NORMAL (130-450,000) (NORMAL); PLATELET MORPHOLOGY RARE GIANT PLATELETS (NORMAL)
[2017-04-14 22:30] LABS: ALBUMIN/GLOBULIN RATIO 0.6 (1.0-2.2); BILIRUBIN,TOTAL 0.8 mg/dL (0.2-1.0); CALCIUM 6.6 mg/dL (8.5-10.3); CREATININE 1.2 mg/dL (0.4-1.0); TOTAL PROTEIN 4.7 g/dL (6.7-8.2)
[2017-04-14 22:32] LABS: POTASSIUM 2.4 mmol/L (3.5-5.0)
== END 2017-04-14 08:52 | disposition home or self-care (01) ==
LOC: LAB.R 08:51
DX: J96.02 Acute respiratory failure with hypercapnia (principal); T81.4XXD Infection following a procedure, subsequent encounter; D64.9 Anemia, unspecified
CPT/HCPCS: 80053; 85025; 85651; 86140

== ENCOUNTER 2017-04-19 11:40 | Outpatient (CLI) | payer MEDICARE ==
[2017-04-19 12:19] LABS: CALCIUM 6.8 mg/dL (8.5-10.3); POTASSIUM 2.9 mmol/L (3.5-5.0)
== END 2017-04-19 11:41 | disposition home or self-care (01) ==
LOC: LAB.R 11:40
DX: I10 Essential (primary) hypertension (principal); Z79.2 Long term (current) use of antibiotics
CPT/HCPCS: 80048; 83735

== ENCOUNTER 2017-04-27 09:15 | Outpatient (CLI) | payer MEDICARE ==
[2017-04-27 20:20] LABS: BASOPHILS # (AUTO) 0.1 10^3/uL (0.0-0.1); BASOPHILS % (AUTO) 0.9 %; EOSINOPHILS # (AUTO) 0.3 10^3/uL (0.0-0.7); EOSINOPHILS % (AUTO) 4.3 %; HCT - HEMATOCRIT 28.5 % (37.0-47.0); HGB - HEMOGLOBIN 9.1 g/dL (12.0-16.0); LYMPHOCYTES # (AUTO) 2.9 10^3/uL (1.5-3.5); LYMPHOCYTES % (AUTO) 38.1 %; MEAN CORPUSCULAR HGB CONC 31.9 g/dL (32.0-36.0); MEAN CORPUSCULAR VOLUME 81.4 fL (81.0-99.0); MEAN PLATELET VOLUME 7.8 fL (7.9-10.8); MONOCYTES % (AUTO) 12.4 %; NEUTROPHILS # (AUTO) 3.4 10^3/uL (1.5-6.6); NEUTROPHILS % (AUTO) 44.3 %; RED CELL DISTRIBUTION WIDTH 24.8 % (12.0-15.0); UNCORRECTED WHITE BLOOD COUNT 7.7 x10^3/uL; WHITE BLOOD COUNT 7.7 x10^3/uL (4.8-10.8)
[2017-04-27 20:41] LABS: PLATELET ESTIMATE, MANUAL NORMAL (130-450,000) (NORMAL); PLATELET MORPHOLOGY NORMAL APPEARANCE (NORMAL)
[2017-04-27 21:44] LABS: ALBUMIN/GLOBULIN RATIO 0.5 (1.0-2.2); BILIRUBIN,TOTAL 0.5 mg/dL (0.2-1.0); CALCIUM 7.8 mg/dL (8.5-10.3); CREATININE 1.1 mg/dL (0.4-1.0); TOTAL PROTEIN 4.7 g/dL (6.7-8.2)
== END 2017-04-27 09:16 | disposition home or self-care (01) ==
LOC: LAB.R 09:15
DX: D64.9 Anemia, unspecified (principal); I50.9 Heart failure, unspecified; E83.42 Hypomagnesemia
CPT/HCPCS: 80053; 83735; 85025

== ENCOUNTER 2017-05-03 15:55 | Outpatient (CLI) | payer MEDICARE ==
[2017-05-03 17:03] LABS: CALCIUM 7.8 mg/dL (8.5-10.3); CREATININE 1.2 mg/dL (0.4-1.0); MAGNESIUM 1.2 mg/dL (1.7-2.8); POTASSIUM 3.7 mmol/L (3.5-5.0)
== END 2017-05-03 15:56 | disposition home or self-care (01) ==
LOC: LAB.R 15:55
DX: E83.42 Hypomagnesemia (principal)
CPT/HCPCS: 80048; 83735; 83880

== ENCOUNTER 2017-05-07 08:00 | Outpatient (CLI) | payer MEDICARE ==
[2017-05-07 18:35] LABS: CALCIUM 7.6 mg/dL (8.5-10.3); CREATININE 1.3 mg/dL (0.4-1.0); MAGNESIUM 1.3 mg/dL (1.7-2.8); POTASSIUM 3.9 mmol/L (3.5-5.0)
[2017-05-08 16:22] LABS: BASOPHILS # (AUTO) 0.1 10^3/uL (0.0-0.1); BASOPHILS % (AUTO) 1.2 %; EOSINOPHILS # (AUTO) 0.5 10^3/uL (0.0-0.7); EOSINOPHILS % (AUTO) 6.6 %; HCT - HEMATOCRIT 27.5 % (37.0-47.0); HGB - HEMOGLOBIN 9.1 g/dL (12.0-16.0); LYMPHOCYTES % (AUTO) 27.4 %; MEAN CORPUSCULAR HEMOGLOBIN 27.6 pg (27.0-31.0); MEAN CORPUSCULAR HGB CONC 33.2 g/dL (32.0-36.0); MEAN CORPUSCULAR VOLUME 83.2 fL (81.0-99.0); MEAN PLATELET VOLUME 8.1 fL (7.9-10.8); MONOCYTES # (AUTO) 0.8 10^3/uL (0.0-1.0); MONOCYTES % (AUTO) 11.4 %; NEUTROPHILS # (AUTO) 3.8 10^3/uL (1.5-6.6); NEUTROPHILS % (AUTO) 53.4 %; RED CELL DISTRIBUTION WIDTH 24.7 % (12.0-15.0); UNCORRECTED WHITE BLOOD COUNT 7.2 x10^3/uL; WHITE BLOOD COUNT 7.2 x10^3/uL (4.8-10.8)
[2017-05-08 17:04] LABS: PLATELET MORPHOLOGY PLATELET CLUMPING (NORMAL)
== END 2017-05-07 08:01 | disposition home or self-care (01) ==
LOC: LAB.R 08:00
DX: I50.9 Heart failure, unspecified (principal); R79.82 Elevated C-reactive protein (CRP); E83.42 Hypomagnesemia; R70.0 Elevated erythrocyte sedimentation rate; D64.9 Anemia, unspecified
CPT/HCPCS: 80048; 83735; 85025; 85651; 86140

== ENCOUNTER 2017-05-17 09:37 | Outpatient (CLI) | payer MEDICARE | END 2017-05-17 23:59 | disposition home or self-care (01) | LOC: LAB.R 09:37 | DX: Z53.9 Procedure and treatment not carried out, unspecified reason (principal) | CPT/HCPCS: 87493 ==

== ENCOUNTER 2017-05-17 19:15 | Outpatient (CLI) | payer MEDICARE ==
[2017-05-17 20:15] LABS: ALBUMIN/GLOBULIN RATIO 0.5 (1.0-2.2); BILIRUBIN,TOTAL 0.5 mg/dL (0.2-1.0); CALCIUM 7.8 mg/dL (8.5-10.3); CREATININE 0.9 mg/dL (0.4-1.0); POTASSIUM 4.2 mmol/L (3.5-5.0); TOTAL PROTEIN 4.6 g/dL (6.7-8.2)
[2017-05-17 20:22] LABS: BASOPHILS # (AUTO) 0.1 10^3/uL (0.0-0.1); BASOPHILS % (AUTO) 0.9 %; EOSINOPHILS # (AUTO) 0.9 10^3/uL (0.0-0.7); HCT - HEMATOCRIT 27.6 % (37.0-47.0); HGB - HEMOGLOBIN 9.2 g/dL (12.0-16.0); LYMPHOCYTES # (AUTO) 2.1 10^3/uL (1.5-3.5); LYMPHOCYTES % (AUTO) 30.3 %; MEAN CORPUSCULAR HEMOGLOBIN 28.8 pg (27.0-31.0); MEAN CORPUSCULAR HGB CONC 33.3 g/dL (32.0-36.0); MEAN CORPUSCULAR VOLUME 86.4 fL (81.0-99.0); MEAN PLATELET VOLUME 7.7 fL (7.9-10.8); MONOCYTES # (AUTO) 0.8 10^3/uL (0.0-1.0); MONOCYTES % (AUTO) 11.6 %; NEUTROPHILS % (AUTO) 44.2 %; RED CELL DISTRIBUTION WIDTH 24.1 % (12.0-15.0); UNCORRECTED WHITE BLOOD COUNT 6.9 x10^3/uL; WHITE BLOOD COUNT 6.9 x10^3/uL (4.8-10.8)
[2017-05-17 21:23] LABS: PLATELET ESTIMATE, MANUAL NORMAL (130-450,000) (NORMAL); PLATELET MORPHOLOGY NORMAL APPEARANCE (NORMAL); WBC MORPHOLOGY (MULTIPLE) NORMAL APPEARANCE (NORMAL)
== END 2017-05-17 19:16 | disposition home or self-care (01) ==
LOC: LAB.R 19:15
DX: I50.9 Heart failure, unspecified (principal); D64.9 Anemia, unspecified
CPT/HCPCS: 80053; 83880; 85025

== ENCOUNTER 2017-05-19 08:00 | Outpatient (CLI) | payer MEDICARE | END 2017-05-19 08:01 | disposition home or self-care (01) | LOC: LAB.R 08:00 | DX: E44.0 Moderate protein-calorie malnutrition (principal) | CPT/HCPCS: 84134 ==

== ENCOUNTER 2017-05-25 11:04 | Outpatient (CLI) | payer MEDICARE, OTHER ==
[2017-05-25 16:11] LABS: ALBUMIN/GLOBULIN RATIO 0.4 (1.0-2.2); BILIRUBIN,TOTAL 0.2 mg/dL (0.2-1.0); CREATININE 0.8 mg/dL (0.4-1.0); MAGNESIUM 1.6 mg/dL (1.7-2.8); POTASSIUM 3.8 mmol/L (3.5-5.0)
== END 2017-05-25 11:05 | disposition home or self-care (01) ==
LOC: LAB.R 11:04
DX: I50.9 Heart failure, unspecified (principal); G25.81 Restless legs syndrome
CPT/HCPCS: 80053; 83735

== ENCOUNTER 2017-06-08 17:15 | Outpatient (CLI) | payer MEDICARE ==
[2017-06-08 18:08] LABS: ALBUMIN/GLOBULIN RATIO 0.4 (1.0-2.2); BILIRUBIN,TOTAL 0.3 mg/dL (0.2-1.0); CALCIUM 8.1 mg/dL (8.5-10.3); CREATININE 0.9 mg/dL (0.4-1.0)
== END 2017-06-08 17:16 | disposition home or self-care (01) ==
LOC: LAB.R 17:15
DX: I50.9 Heart failure, unspecified (principal)
CPT/HCPCS: 80053

== ENCOUNTER 2017-07-03 11:20 | Outpatient (CLI) | payer MEDICARE, OTHER ==
[2017-07-03 15:20] LABS: CALCIUM 8.5 mg/dL (8.5-10.3); CREATININE 0.9 mg/dL (0.4-1.0); MAGNESIUM 1.7 mg/dL (1.7-2.8); POTASSIUM 3.7 mmol/L (3.5-5.0)
== END 2017-07-03 11:21 | disposition home or self-care (01) ==
LOC: LAB.R 11:20
DX: I10 Essential (primary) hypertension (principal); G25.81 Restless legs syndrome
CPT/HCPCS: 80048; 83735

== ENCOUNTER 2017-07-15 08:00 | Outpatient (CLI) | payer MEDICARE | END 2017-07-15 23:59 | LOC: LAB.R 08:00 | DX: A08.11 Acute gastroenteropathy due to Norwalk agent (principal) | CPT/HCPCS: 87798 ==

== ENCOUNTER 2017-08-07 08:00 | Outpatient (CLI) | payer MEDICARE | END 2017-08-07 08:01 | disposition home or self-care (01) | LOC: LAB.R 08:00 | DX: S82.142D Displaced bicondylar fracture of left tibia, subsequent encounter for closed fracture with routine healing (principal) | CPT/HCPCS: 87070; 87205 ==

== ENCOUNTER 2017-10-19 20:28 | Outpatient (CLI) | payer MEDICARE ==
[2017-10-19 19:02] LABS: EOSINOPHILS # (AUTO) 0.1 10^3/uL (0.0-0.7); HGB - HEMOGLOBIN 12.6 g/dL (12.0-16.0); MEAN CORPUSCULAR HEMOGLOBIN 27.1 pg (27.0-31.0); MEAN CORPUSCULAR VOLUME 84.7 fL (81.0-99.0); MEAN PLATELET VOLUME 10.7 fL (7.9-10.8); MONOCYTES # (AUTO) 0.5 10^3/uL (0.0-1.0); MONOCYTES % (AUTO) 10.9 %; NEUTROPHILS # (AUTO) 2.3 10^3/uL (1.5-6.6); NEUTROPHILS % (AUTO) 46.1 %; PLT - PLATELET COUNT 153 10^3/uL (130-450); RED BLOOD COUNT 4.66 10^6/uL (4.20-5.40); RED CELL DISTRIBUTION WIDTH 16.2 % (12.0-15.0)
[2017-10-19 19:19] LABS: ALBUMIN 3.9 g/dL (3.2-5.5); ALBUMIN/GLOBULIN RATIO 1.2 (1.0-2.2); ALKALINE PHOSPHATASE 55 IU/L (42-121); ALT ALANINE AMINOTRANSFERASE < 10 IU/L (10-60); AST ASPARTATE AMINOTRANSFERASE 19 IU/L (10-42); BILIRUBIN,TOTAL 0.8 mg/dL (0.2-1.0); BUN - BLOOD UREA NITROGEN 17 mg/dL (6-20); CALCIUM 9.8 mg/dL (8.5-10.3); CARBON DIOXIDE - CO2 29 mmol/L (21-32); CHLORIDE 101 mmol/L (101-111); CREATININE 0.9 mg/dL (0.4-1.0); GFR - MDRD 62 (>89); GLUCOSE 82 mg/dL (70-100); SODIUM 139 mmol/L (135-145); TOTAL PROTEIN 7.2 g/dL (6.7-8.2)
[2017-10-19 19:23] LABS: HB2 TOTAL 13.5 g/dL; HEMOGLOBIN A1C 0.52 g/dL; HEMOGLOBIN A1C % 5.7 % (4.6-6.2)
== END 2017-10-19 20:29 | disposition home or self-care (01) ==
LOC: LAB.WCP 20:28
PROVIDERS: ATTEND Family Medicine
DX: I10 Essential (primary) hypertension (principal); N28.9 Disorder of kidney and ureter, unspecified; D64.9 Anemia, unspecified; R60.9 Edema, unspecified
CPT/HCPCS: 36415; 80053; 83036; 85025

== ENCOUNTER 2017-11-28 10:39 | Outpatient (CLI) | payer MEDICARE ==
--- NOTE | 2017-11-29 08:56 | XRAY Report ---
EXAM: BILATERAL KNEE RADIOGRAPHY EXAM DATE: 11/28/2017 11:25 AM. CLINICAL HISTORY: OSTEOARTHRITIS,KNEES,BILATERAL. COMPARISON: Left knee radiographs 03/12/2017. TECHNIQUE: 3 views each knee. FINDINGS: Right: Bones: Osteopenia. No fracture. Joints: Severe tricompartmental osteoarthritis with joint space loss and osteophytosis, with bone-on- bone articulation in the medial compartment. Trace effusion. Soft Tissues: Normal. No soft tissue swelling. Left: Bones: Open reduction internal fixation of the proximal tibia with plate and screws. No lucency surro unding the hardware. No lucent fracture line. Osteopenia. Ossification or calcification seen on the p atellofemoral view adjacent to the lateral femoral condyle, may be dystrophic calcification or hetero topic bone Joints: Osteoarthritis, difficult to evaluate with hardware obscuring the lateral compartment Soft Tissues: Normal. No soft tissue swelling. IMPRESSION: 1. Severe right knee tricompartmental osteoarthritis with [id number] articulation in the medial com partment. 2. Left knee osteoarthritis is suboptimally evaluated with hardware obscuring the lateral compartment 3. Osteopenia 4. Trace right knee effusion Right: Kellgren Ean Grade 4. Left: Kellgren Ean Grade X. Kellgren and Ean classification of osteoarthritis: Grade 0: no radiographic features of osteoarthritis are present Grade 1: doubtful joint space narrowing (JSN) and possible osteophytic lipping Grade 2: definite osteophytes and possible JSN on anteroposterior weight-bearing radiograph Grade 3: multiple osteophytes, definite JSN, sclerosis, possible bony deformity Grade 4: large osteophytes, marked JSN, severe sclerosis and definite bony deformity [facility] Referring Provider Line: [phone] SITE ID: [id number]
== END 2017-11-28 10:40 | disposition home or self-care (01) ==
LOC: DI 10:39
PROVIDERS: ATTEND Family Medicine
DX: M17.0 Bilateral primary osteoarthritis of knee (principal); M85.862 Other specified disorders of bone density and structure, left lower leg; M85.861 Other specified disorders of bone density and structure, right lower leg

== ENCOUNTER 2018-03-02 16:19 | Outpatient (CLI) | payer MEDICARE ==
--- NOTE | 2018-03-03 14:19 | MRI Report ---
Procedure Date: 03/02/2018 Accession Number: [id number] / [id number] Procedure: MRI - Knee LT W/O CPT Code: FULL RESULT: EXAM: LEFT KNEE MRI WITHOUT CONTRAST EXAM DATE: 03/02/2018 04:40 PM. CLINICAL HISTORY: Knee pain, left. Status post repair of depressed comminuted fracture lateral tibial plateau seen on the CT 01/26/2017. COMPARISON: CT left knee 01/26/2017 and left knee 7 views 11/28/2017.. TECHNIQUE: Multiplanar, multisequence T1-weighted and fluid-sensitive sequences of the knee without contrast. Other: None. FINDINGS: Nonvisualization of tibiofemoral compartment secondary to artifact from lateral tibial plateau fixation plate and fixation screws. Small fluid collection patellofemoral compartment. Preservation of the infrapatellar fat pad. Distal quadriceps tendon and patellar tendon are without disruption. Mild chondromalacia patella. Negative for fluid signal trochlear groove or articular cartilage defect. Popliteal soft tissues are grossly normal. The posterior cruciate ligament is intact. Thickening of the iliotibial band. Intact proximal medial collateral ligament. IMPRESSION: 1. Nonvisualization of tibiofemoral compartment secondary to lateral proximal tibia fixation plate and screws from open reduction and internal fixation depressed comminuted lateral tibial plateau fracture. 2. Unremarkable anterior compartment. 3. Thickening of the iliotibial band. [facility] MUSCULOSKELETAL RADIOLOGY SECTION
== END 2018-03-02 16:20 | disposition home or self-care (01) ==
LOC: DI 16:19
PROVIDERS: ATTEND Family Medicine
DX: M25.562 Pain in left knee (principal)

== ENCOUNTER 2018-03-17 11:31 | Outpatient (CLI) | payer MEDICARE ==
[2018-03-17 12:13] LABS: CREATININE 0.9 mg/dL (0.4-1.0)
== END 2018-03-17 11:32 | disposition home or self-care (01) ==
LOC: LAB 11:31
PROVIDERS: ATTEND Psychiatry & Neurology Neurology
DX: R20.2 Paresthesia of skin (principal)
CPT/HCPCS: 36415; 82565

== ENCOUNTER 2018-06-24 15:05 | Outpatient (CLI) | payer MEDICARE ==
[2018-06-24 15:39] LABS: BASOPHILS # (AUTO) 0.1 10^3/uL (0.0-0.1); BASOPHILS % (AUTO) 1.9 %; EOSINOPHILS # (AUTO) 0.2 10^3/uL (0.0-0.7); EOSINOPHILS % (AUTO) 2.3 %; HGB - HEMOGLOBIN 14.4 g/dL (12.0-16.0); LYMPHOCYTES # (AUTO) 1.9 10^3/uL (1.5-3.5); LYMPHOCYTES % (AUTO) 28.9 %; MEAN CORPUSCULAR HEMOGLOBIN 29.7 pg (27.0-31.0); MEAN CORPUSCULAR HGB CONC 33.6 g/dL (32.0-36.0); MEAN CORPUSCULAR VOLUME 88.3 fL (81.0-99.0); MEAN PLATELET VOLUME 10.2 fL (7.9-10.8); MONOCYTES # (AUTO) 0.6 10^3/uL (0.0-1.0); MONOCYTES % (AUTO) 8.3 %; NEUTROPHILS # (AUTO) 3.9 10^3/uL (1.5-6.6); NEUTROPHILS % (AUTO) 58.6 %; PLT - PLATELET COUNT 152 10^3/uL (130-450); RED BLOOD COUNT 4.84 10^6/uL (4.20-5.40); RED CELL DISTRIBUTION WIDTH 14.4 % (12.0-15.0); WHITE BLOOD COUNT 6.7 x10^3/uL (4.8-10.8)
[2018-06-24 15:44] LABS: CALCIUM 9.1 mg/dL (8.5-10.3); CREATININE 0.9 mg/dL (0.4-1.0)
[2018-06-24 16:09] LABS: HB2 TOTAL 15.2 g/dL; HEMOGLOBIN A1C 0.55 g/dL; HEMOGLOBIN A1C % 5.5 % (4.6-6.2)
== END 2018-06-24 15:06 | disposition home or self-care (01) ==
LOC: LAB 15:05
PROVIDERS: ATTEND Orthopaedic Surgery
DX: Z01.818 Encounter for other preprocedural examination (principal); R73.9 Hyperglycemia, unspecified
CPT/HCPCS: 36415; 80048; 83036; 85025; 93005

== ENCOUNTER 2018-09-10 11:23 | Outpatient (CLI) | payer MEDICARE ==
[2018-09-10 11:46] LABS: BASOPHILS # (AUTO) 0.1 10^3/uL (0.0-0.1); BASOPHILS % (AUTO) 1.4 %; EOSINOPHILS # (AUTO) 0.3 10^3/uL (0.0-0.7); EOSINOPHILS % (AUTO) 4.6 %; HGB - HEMOGLOBIN 13.1 g/dL (12.0-16.0); LYMPHOCYTES # (AUTO) 1.6 10^3/uL (1.5-3.5); LYMPHOCYTES % (AUTO) 25.2 %; MEAN CORPUSCULAR HEMOGLOBIN 29.9 pg (27.0-31.0); MEAN CORPUSCULAR VOLUME 90.7 fL (81.0-99.0); MEAN PLATELET VOLUME 9.2 fL (7.9-10.8); MONOCYTES # (AUTO) 0.5 10^3/uL (0.0-1.0); MONOCYTES % (AUTO) 7.7 %; NEUTROPHILS # (AUTO) 3.9 10^3/uL (1.5-6.6); NEUTROPHILS % (AUTO) 61.1 %; PLT - PLATELET COUNT 170 10^3/uL (130-450); RED BLOOD COUNT 4.38 10^6/uL (4.20-5.40); RED CELL DISTRIBUTION WIDTH 14.4 % (12.0-15.0); WHITE BLOOD COUNT 6.4 x10^3/uL (4.8-10.8)
[2018-09-10 12:06] LABS: ALBUMIN 3.6 g/dL (3.2-5.5); ALBUMIN/GLOBULIN RATIO 1.2 (1.0-2.2); ALKALINE PHOSPHATASE 75 IU/L (42-121); ALT ALANINE AMINOTRANSFERASE < 10 IU/L (10-60); AST ASPARTATE AMINOTRANSFERASE 16 IU/L (10-42); BILIRUBIN,TOTAL 0.7 mg/dL (0.2-1.0); BUN - BLOOD UREA NITROGEN 18 mg/dL (6-20); CALCIUM 9.1 mg/dL (8.5-10.3); CARBON DIOXIDE - CO2 29 mmol/L (21-32); CHLORIDE 98 mmol/L (101-111); CHOLESTEROL 247 mg/dL; CREATININE 0.8 mg/dL (0.4-1.0); GFR - MDRD 71 (>89); GLUCOSE 91 mg/dL (70-100); HDL CHOLESTEROL 62 mg/dL; LDL CHOLESTEROL,CALCULATED 148 mg/dL; LDL/HDL RATIO 2.4 (<4.4); SODIUM 135 mmol/L (135-145); TOTAL PROTEIN 6.7 g/dL (6.7-8.2); VLDL CHOLESTEROL 37 mg/dL
[2018-09-10 12:20] LABS: HB2 TOTAL 14.5 g/dL; HEMOGLOBIN A1C 0.52 g/dL; HEMOGLOBIN A1C % 5.4 % (4.6-6.2)
== END 2018-09-10 11:24 | disposition home or self-care (01) ==
LOC: LAB 11:23
PROVIDERS: ATTEND Family Medicine
DX: I10 Essential (primary) hypertension (principal); E78.1 Pure hyperglyceridemia; R73.01 Impaired fasting glucose; R20.9 Unspecified disturbances of skin sensation; F32.9 Major depressive disorder, single episode, unspecified; D64.9 Anemia, unspecified
CPT/HCPCS: 36415; 80053; 80061; 83036; 83721; 84443; 85025

== ENCOUNTER 2018-10-18 08:00 | Outpatient (CLI) | payer MEDICARE | END 2018-10-18 23:59 | disposition home or self-care (01) | LOC: LAB.R 08:00 | PROVIDERS: ATTEND Family Medicine | DX: R19.7 Diarrhea, unspecified (principal) | CPT/HCPCS: 81599; 83630; 87045; 87046; 87177; 87209; 87329; 87493 ==

== ENCOUNTER 2018-10-26 11:22 | Outpatient (CLI) | payer MEDICARE ==
[2018-10-26 11:42] LABS: BASOPHILS # (AUTO) 0.2 10^3/uL (0.0-0.1); BASOPHILS % (AUTO) 2.4 %; EOSINOPHILS # (AUTO) 0.5 10^3/uL (0.0-0.7); EOSINOPHILS % (AUTO) 7.3 %; HGB - HEMOGLOBIN 13.4 g/dL (12.0-16.0); LYMPHOCYTES # (AUTO) 1.6 10^3/uL (1.5-3.5); LYMPHOCYTES % (AUTO) 25.1 %; MEAN CORPUSCULAR HEMOGLOBIN 29.6 pg (27.0-31.0); MEAN CORPUSCULAR HGB CONC 32.9 g/dL (32.0-36.0); MEAN PLATELET VOLUME 9.3 fL (7.9-10.8); MONOCYTES # (AUTO) 0.5 10^3/uL (0.0-1.0); MONOCYTES % (AUTO) 7.7 %; NEUTROPHILS # (AUTO) 3.7 10^3/uL (1.5-6.6); NEUTROPHILS % (AUTO) 57.5 %; PLT - PLATELET COUNT 166 10^3/uL (130-450); RED BLOOD COUNT 4.51 10^6/uL (4.20-5.40); RED CELL DISTRIBUTION WIDTH 13.7 % (12.0-15.0); WHITE BLOOD COUNT 6.5 x10^3/uL (4.8-10.8)
[2018-10-26 12:05] LABS: ALBUMIN 3.5 g/dL (3.2-5.5); ALBUMIN/GLOBULIN RATIO 1.1 (1.0-2.2); ALKALINE PHOSPHATASE 64 IU/L (42-121); ALT ALANINE AMINOTRANSFERASE < 10 IU/L (10-60); AST ASPARTATE AMINOTRANSFERASE 19 IU/L (10-42); BILIRUBIN,TOTAL 0.5 mg/dL (0.2-1.0); BUN - BLOOD UREA NITROGEN 15 mg/dL (6-20); CALCIUM 8.9 mg/dL (8.5-10.3); CARBON DIOXIDE - CO2 24 mmol/L (21-32); CHLORIDE 101 mmol/L (101-111); CREATININE 0.9 mg/dL (0.4-1.0); GFR - MDRD 62 (>89); GLUCOSE 91 mg/dL (70-100); SODIUM 135 mmol/L (135-145); TOTAL PROTEIN 6.8 g/dL (6.7-8.2)
== END 2018-10-26 11:23 | disposition home or self-care (01) ==
LOC: LAB 11:22
PROVIDERS: ATTEND Family Medicine
DX: R19.7 Diarrhea, unspecified (principal)
CPT/HCPCS: 36415; 80053; 85025

== ENCOUNTER 2019-01-31 02:07 | Outpatient (CLI) | payer MEDICARE | END 2019-01-31 02:08 | disposition EMS.NT | LOC: EMS 02:07 | PROVIDERS: ATTEND Surgery | DX: Z03.89 Encounter for observation for other suspected diseases and conditions ruled out (principal) ==

== ENCOUNTER 2019-01-31 02:07 | Outpatient (CLI) | payer MEDICARE | END 2019-01-31 02:08 | disposition EMS.NT | LOC: EMS 02:07 | PROVIDERS: ATTEND Surgery | DX: Z03.89 Encounter for observation for other suspected diseases and conditions ruled out (principal) ==

== ENCOUNTER 2019-04-30 14:04 | Emergency (ER) | payer MEDICARE ==
[2019-04-30 14:15] VITALS: BP 132/59
[2019-04-30] MEDS ORDERED: predniSONE 20 MG TABLET PO STA (14:35)
--- NOTE | 2019-04-30 14:37 | ED Physician Documentation ---
History of Present Illness - Stated complaint Stated Complaint: BODY SWELLING - Chief complaint Chief Complaint: Allergic Rx - History obtained from History obtained from: Patient - History of Present Illness Timing: How many days ago (2) Pain level max: 0 Pain level now: 0 - Additonal information Additional information: 68-year-old female presents to the emergency department with a body wide rash that started after taking amoxicillin after a dental implant. She complains of itching. Not relieved by Benadryl. No fevers. No difficulty breathing or swallowing. Nothing makes it better or worse. She stopped the amoxicillin 2 days ago. Has not contacted her oral surgeon. Review of Systems Constitutional: denies: Fever, Chills Respiratory: denies: Cough GI: denies: Nausea, Vomiting, Diarrhea Skin: reports: Rash Musculoskeletal: denies: Neck pain, Back pain Neurologic: denies: Headache PD PAST MEDICAL HISTORY - Past Medical History Cardiovascular: Hypertension, High cholesterol, Other Respiratory: Sleep apnea GI: GERD : Renal insuffiency Psych: Depression Musculoskeletal: Osteoarthritis, Chronic back pain - Past Surgical History Past Surgical History: Yes General: Cholecystectomy, Hiatal hernia repair Ortho: Arthroscopic surgery /[employer]: section, Hysterectomy - Present Medications Home Medications: Ambulatory Orders Medication Instructions Recorded Confirmed Omeprazole [Prilosec] 20 mg PO BID 06/02/13 04/30/19 Acetaminophen [Tylenol Extra 1,000 mg PO TID 02/23/17 04/30/19 Strength] Carbidopa/Levodopa 25/100 [Sinemet 1 tab PO DAILY 02/23/17 03/11/17 25 mg/100 mg] Carbidopa/Levodopa [Carbidopa-Levo 2 tab PO DAILY PM 03/11/17 04/30/19 ER 25-100 Tab] Hydrocodone/Acetaminophen 1 tab PO Q4H PRN 03/11/17 04/30/19 [Hydrocodon-Acetaminophen 5-325] Oxybutynin [Ditropan] 5 mg PO TID 04/30/19 04/30/19 Pregabalin mg PO 04/30/19 predniSONE [Prednisone] 40 mg PO DAILY #10 tablet 04/30/19 - Allergies Allergies/Adverse Reactions: Allergies Allergy/AdvReac Type Severity Reaction Status Date / Time latex Allergy Unknown Verified 03/10/17 23:21 adhesive tape AdvReac Unknown Verified 08/16/17 23:21 - Social History Does the pt smoke?: No Smoking Status: Never smoker Does the pt drink ETOH?: Yes Does the pt have substance abuse?: No - Immunizations Immunizations are current?: No Immunizations: TDAP >10years/unknown - POLST Patient has POLST: Yes PD ED PE NORMAL - Vitals Vital signs reviewed: Yes - General General: Alert and oriented X 3, No acute distress, Well developed/nourished - HEENT HEENT: PERRL, Moist mucous membranes, Pharynx benign, Other (Normal posterior oropharyngeal exam) - Neck Neck: Supple, no meningeal sign, Other (No wheezing or stridor) - Cardiac Cardiac: RRR, Strong equal pulses - Respiratory Respiratory: No respiratory distress, Clear bilaterally - Abdomen Abdomen: Soft, Non tender, Non distended - Derm Derm: Warm and dry, Other (Diffuse maculopapular exanthem that blanches easily. No vesicles. No pustules.) - Extremities Extremities: No edema - Neuro Neuro: Alert and oriented X 3 - Psych Psych: Normal mood, Normal affect Results - Vitals Vitals: Vital Signs - 24 hr 04/30/19 14:10 Temperature 36.4 C L Heart Rate 64 Respiratory 14 Rate Blood Pressure 132/59 H O2 Saturation 97 Oxygen O2 Source Nasal cannula PD MEDICAL DECISION MAKING - ED course Complexity details: considered differential, d/w patient, d/w family ED course: Will place on prednisone for an allergic reaction. I discussed the case with her oral surgeon who states that she does not need any further antibiotics. T herefore will not place her back on antibiotics. She does have a history of C. difficile. Patient is well-appearing, nontoxic. Afebrile. Patient counseled regarding signs and symptoms for which I believe and urgent re-evaluation would be necessary. Patient with good understanding of and agreement to plan and is comfortable going home at this time This document was made in part using voice recognition software. While efforts are made to proofread this document, sound alike and grammatical errors may occur. Departure - Departure Disposition: 01 Home, Self Care Clinical Impression: Allergic reaction Qualifiers: Encounter type: initial encounter Qualified Code(s): T78.40XA - Allergy, unspecified, initial encounter Condition: Good Instructions: ED Drug React Allergic Follow-Up: YONIS ZAFAR [Physician No Access] - Yonis Zafar DDS [Provider Admit Priv/Credential] - Within 3 Days Prescriptions: predniSONE [Prednisone] 40 mg PO DAILY #10 tablet Comments: I spoke with Dr. Maximus jeffery. He does not want to restart you on antibiotics at this time. We will place you on steroids for home. Follow-up with your doctor for further care. Discharge Date/Time: 04/30/19 14:58
== END 2019-04-30 14:58 | disposition home or self-care (01) ==
LOC: ED 14:04
DX: T78.40XA Allergy, unspecified, initial encounter (principal); I10 Essential (primary) hypertension
CPT/HCPCS: 99282; 99284; J7512

== ENCOUNTER 2019-05-03 17:38 | Outpatient (CLI) | payer MEDICARE ==
[2019-05-03 17:55] LABS: BASOPHILS % (AUTO) 0.2 %; EOSINOPHILS % (AUTO) 0.1 %; HGB - HEMOGLOBIN 12.5 g/dL (12.0-16.0); LYMPHOCYTES # (AUTO) 1.5 10^3/uL (1.5-3.5); LYMPHOCYTES % (AUTO) 13.8 %; MEAN CORPUSCULAR VOLUME 93.3 fL (81.0-99.0); MONOCYTES # (AUTO) 1.1 10^3/uL (0.0-1.0); MONOCYTES % (AUTO) 10.4 %; NEUTROPHILS # (AUTO) 7.9 10^3/uL (1.5-6.6); NEUTROPHILS % (AUTO) 74.5 %; PLT - PLATELET COUNT 181 10^3/uL (130-450); RED BLOOD COUNT 4.46 10^6/uL (4.20-5.40); RED CELL DISTRIBUTION WIDTH 14.4 % (12.0-15.0); WHITE BLOOD COUNT 10.5 x10^3/uL (4.8-10.8)
[2019-05-03 17:56] LABS: BILIRUBIN,URINE NEGATIVE (NEGATIVE); GLUCOSE, URINE (UA) NEGATIVE (NEGATIVE); KETONES,URINE (UA) NEGATIVE (NEGATIVE); LEUKOCYTE ESTERASE, URINE NEGATIVE (NEGATIVE); NITRITE,URINE NEGATIVE (NEGATIVE); OCCULT BLOOD,URINE NEGATIVE (NEGATIVE); PROTEIN,URINE NEGATIVE (NEGATIVE); UROBILINOGEN,URINE 0.2 (NORMAL) E.U./dL (NORMAL)
[2019-05-03 17:59] LABS: CLARITY,URINE CLEAR (CLEAR)
[2019-05-03 17:59] LABS: CALCIUM 8.8 mg/dL (8.5-10.3)
[2019-05-03 18:14] LABS: HB2 TOTAL 13.3 g/dL; HEMOGLOBIN A1C 0.53 g/dL; HEMOGLOBIN A1C % 5.8 % (4.6-6.2)
== END 2019-05-03 17:39 | disposition home or self-care (01) ==
LOC: LAB 17:38
PROVIDERS: ATTEND Orthopaedic Surgery
DX: Z01.812 Encounter for preprocedural laboratory examination (principal); N39.9 Disorder of urinary system, unspecified; Z13.1 Encounter for screening for diabetes mellitus; R73.9 Hyperglycemia, unspecified
CPT/HCPCS: 36415; 80048; 81001; 81003; 83036; 85025; 87086

== ENCOUNTER 2019-05-05 14:12 | Outpatient (CLI) | payer MEDICARE | END 2019-05-05 14:13 | disposition home or self-care (01) | LOC: RT 14:12 | PROVIDERS: ATTEND Orthopaedic Surgery | DX: Z01.818 Encounter for other preprocedural examination (principal); N39.9 Disorder of urinary system, unspecified; Z13.1 Encounter for screening for diabetes mellitus; R73.9 Hyperglycemia, unspecified | CPT/HCPCS: 93005 ==

== ENCOUNTER 2020-10-14 08:00 | Outpatient (CLI) | payer MEDICARE ==
[2020-10-14 17:53] LABS: BASOPHILS # (AUTO) 0.1 10^3/uL (0.0-0.1); BASOPHILS % (AUTO) 1.3 %; EOSINOPHILS # (AUTO) 0.7 10^3/uL (0.0-0.7); EOSINOPHILS % (AUTO) 10.6 %; HCT - HEMATOCRIT 38.7 % (37.0-47.0); HGB - HEMOGLOBIN 11.5 g/dL (12.0-16.0); LYMPHOCYTES % (AUTO) 28.9 %; MEAN CORPUSCULAR HGB CONC 29.7 g/dL (32.0-36.0); MEAN CORPUSCULAR VOLUME 87.4 fL (81.0-99.0); MEAN PLATELET VOLUME 12.7 fL (7.9-10.8); MONOCYTES # (AUTO) 0.8 10^3/uL (0.0-1.0); NEUTROPHILS # (AUTO) 3.3 10^3/uL (1.5-6.6); NEUTROPHILS % (AUTO) 48.1 %; PLT - PLATELET COUNT 198 10^3/uL (130-450); RED BLOOD COUNT 4.43 10^6/uL (4.20-5.40); WHITE BLOOD COUNT 6.8 x10^3/uL (4.8-10.8)
[2020-10-14 18:16] LABS: % IRON SATURATION 7 % (20-50); ALBUMIN 3.8 g/dL (3.2-5.5); ALBUMIN/GLOBULIN RATIO 1.1 (1.0-2.2); ALKALINE PHOSPHATASE 105 IU/L (42-121); ALT ALANINE AMINOTRANSFERASE < 10 IU/L (10-60); AST ASPARTATE AMINOTRANSFERASE 18 IU/L (10-42); BILIRUBIN,TOTAL 0.4 mg/dL (0.2-1.0); BUN - BLOOD UREA NITROGEN 13 mg/dL (6-20); CALCIUM 9.5 mg/dL (8.5-10.3); CARBON DIOXIDE - CO2 29 mmol/L (21-32); CHLORIDE 100 mmol/L (101-111); CHOLESTEROL 233 mg/dL; CREATININE 0.9 mg/dL (0.4-1.0); GFR - MDRD 62 (>89); GLUCOSE 82 mg/dL (70-100); HDL CHOLESTEROL 47 mg/dL; IRON 35 ug/dL (28-170); LDL CHOLESTEROL,CALCULATED 130 mg/dL; LDL/HDL RATIO 2.8 (<4.4); POTASSIUM 4.7 mmol/L (3.5-5.0); SODIUM 137 mmol/L (135-145); TOTAL IRON BINDING CAPACITY 510 ug/dL (250-450); TOTAL PROTEIN 7.3 g/dL (6.7-8.2); TRANSFERRIN 364 mg/dL (192-382); TRIGLYCERIDES 280 mg/dL; VLDL CHOLESTEROL 56 mg/dL
[2020-10-14 18:21] LABS: THYROID STIMULATING HORMONE 2.43 uIU/mL (0.34-5.60)
[2020-10-14 18:25] LABS: FERRITIN 9.9 ng/mL (11.0-306.8)
[2020-10-14 20:04] LABS: ESTIMATED AVERAGE GLUCOSE 108 mg/dL (70-100); HEMOGLOBIN A1c% 5.4 % (4.27-6.07)
== END 2020-10-14 23:59 | disposition home or self-care (01) ==
LOC: LAB.WCP 08:00
PROVIDERS: ATTEND Family Medicine
DX: I10 Essential (primary) hypertension (principal); E78.1 Pure hyperglyceridemia; D64.9 Anemia, unspecified; R73.01 Impaired fasting glucose
CPT/HCPCS: 36415; 80053; 80061; 82607; 82728; 83036; 83540; 83721; 84443; 84466; 85025

== ENCOUNTER 2020-10-17 13:36 | Outpatient (CLI) | payer MEDICARE ==
--- NOTE | 2020-10-17 17:15 | XRAY Report ---
PROCEDURE: Chest 2 View X-Ray INDICATIONS: COUGH TECHNIQUE: 2 view(s) of the chest. COMPARISON: 03/11/[address] abdomen and pelvis dated 03/11/2017. FINDINGS: Surgical changes and devices: None. Lungs and pleura: Lung volumes are diminished. No pneumothorax. Mild hazy opacities of the left costo phrenic angle may represent small layering pleural effusion. Similar findings on the right. New patch y ill-defined opacities involving the left mid and lower lung zones. This appears the left heart shad ow. Mild diffuse interstitial prominence. Mediastinum: Mediastinal contours are within normal limits. Heart size is normal. Bones and chest wall: No suspicious bony abnormalities. Soft tissues appear unremarkable. IMPRESSION: Diffuse interstitial prominence with patchy ill-defined left mid and lower lung zone opacities as wel l as possible left greater than right small pleural effusions. Findings may represent an infectious/i nflammatory process. Asymmetric pulmonary edema may have a similar appearance but thought less likely . Additionally, given chronicity of patient's symptoms, consider further evaluation with chest CT. Reviewed by: Pepe Doyle MD on 10/17/2020 5:14 PM PDT Approved by: Pepe Doyle MD on 10/17/2020 5:14 PM PDT Station ID: [id number]
== END 2020-10-17 13:37 | disposition home or self-care (01) ==
LOC: DI.N 13:36
PROVIDERS: ATTEND Family Medicine
DX: R05 Cough (principal); R91.8 Other nonspecific abnormal finding of lung field

== ENCOUNTER 2020-12-27 16:41 | Outpatient (CLI) | payer MEDICARE ==
--- NOTE | 2020-12-27 20:42 | CT Report ---
PROCEDURE: CHEST WO INDICATIONS: Wheezing, cough TECHNIQUE: Noncontrast 5 mm thick sections acquired from the pulmonary apices to the posterior costophrenic angl es. 7 mm thick coronal and sagittal MIP reformats were then acquired. For radiation dose reduction, the following was used: automated exposure control, adjustment of mA and/or kV according to patient size. COMPARISON: 06/11/2016 CT angiogram of the chest FINDINGS: Image quality: Excellent. Airways: Visualized airways are clear and are normal in caliber. Lungs and pleura: No suspicious pulmonary nodule or mass. No focal consolidation or other acute air s pace opacity. No abnormal interstitial findings to suggest an interstitial lung disease. Mediastinum: Normal heart size. No pericardial effusion. Coronary and aortic atherosclerosis. Normal caliber thoracic aorta and main pulmonary trunk. Bones and chest wall: No acute or suspicious osseous lesion in the chest wall. Thoracic vertebral bod y heights and alignment are maintained. Abdomen: No acute finding in the partially included unenhanced upper abdomen. IMPRESSION: No acute or significant abnormality in the chest to explain symptoms. Reviewed by: Prince Little MD on 12/27/2020 8:41 PM PDT Approved by: Prince Little MD on 12/27/2020 8:41 PM PDT Station ID: [id number]
== END 2020-12-27 16:42 | disposition home or self-care (01) ==
LOC: DI 16:41
PROVIDERS: ATTEND Family Medicine
DX: R06.2 Wheezing (principal); R05 Cough

== ENCOUNTER 2021-04-08 15:59 | Outpatient (CLI) | payer MEDICARE | END 2021-04-08 16:00 | disposition home or self-care (01) | LOC: COV 15:59 | PROVIDERS: ATTEND Physician Assistant | DX: Z01.812 Encounter for preprocedural laboratory examination (principal); Z20.822 Contact with and (suspected) exposure to COVID-19 ==

== ENCOUNTER 2021-09-19 10:49 | Outpatient (CLI) | payer MEDICARE ==
[2021-09-19 11:33] LABS: BASOPHILS # (AUTO) 0.1 10^3/uL (0.0-0.1); EOSINOPHILS # (AUTO) 0.1 10^3/uL (0.0-0.7); HGB - HEMOGLOBIN 12.8 g/dL (12.0-16.0); LYMPHOCYTES # (AUTO) 1.3 10^3/uL (1.5-3.5); LYMPHOCYTES % (AUTO) 18.2 %; MEAN CORPUSCULAR HEMOGLOBIN 24.5 pg (27.0-31.0); MEAN CORPUSCULAR HGB CONC 29.8 g/dL (32.0-36.0); MEAN CORPUSCULAR VOLUME 82.2 fL (81.0-99.0); MEAN PLATELET VOLUME 11.8 fL (7.9-10.8); MONOCYTES # (AUTO) 0.6 10^3/uL (0.0-1.0); NEUTROPHILS # (AUTO) 4.8 10^3/uL (1.5-6.6); NEUTROPHILS % (AUTO) 69.7 %; PLT - PLATELET COUNT 219 10^3/uL (130-450); RED BLOOD COUNT 5.23 10^6/uL (4.20-5.40); WHITE BLOOD COUNT 6.9 x10^3/uL (4.8-10.8)
[2021-09-19 11:48] LABS: BUN - BLOOD UREA NITROGEN 17 mg/dL (6-20); CARBON DIOXIDE - CO2 31 mmol/L (21-32); CHLORIDE 95 mmol/L (101-111); CHOL/HDL RATIO 3.7 (<4.4); CHOLESTEROL 236 mg/dL; CREATININE 0.9 mg/dL (0.4-1.0); GFR - MDRD 62 (>89); GLUCOSE 108 mg/dL (70-100); HDL CHOLESTEROL 64 mg/dL; LDL CHOLESTEROL,CALCULATED 136 mg/dL; LDL/HDL RATIO 2.1 (<4.4); POTASSIUM 4.3 mmol/L (3.5-5.0); SODIUM 135 mmol/L (135-145); TRIGLYCERIDES 180 mg/dL; VLDL CHOLESTEROL 36 mg/dL
[2021-09-19 12:34] LABS: ESTIMATED AVERAGE GLUCOSE 120 mg/dL (70-100); HEMOGLOBIN A1c% 5.8 % (4.27-6.07)
== END 2021-09-19 10:50 | disposition home or self-care (01) ==
LOC: LAB 10:49
PROVIDERS: ATTEND Family Medicine
DX: I10 Essential (primary) hypertension (principal); E78.1 Pure hyperglyceridemia; R73.01 Impaired fasting glucose
CPT/HCPCS: 36415; 80048; 80061; 83036; 83721; 85025

== ENCOUNTER 2021-11-20 15:01 | Outpatient (CLI) | payer MEDICARE | END 2021-11-20 15:02 | disposition home or self-care (01) | LOC: LAB 15:01 | PROVIDERS: ATTEND Family Medicine | DX: M85.88 Other specified disorders of bone density and structure, other site (principal) | CPT/HCPCS: 82306 ==

== ENCOUNTER 2022-09-14 13:18 | Outpatient (CLI) | payer MEDICARE ==
[2022-09-14 13:31] LABS: BASOPHILS # (AUTO) 0.1 10^3/uL (0.0-0.1); BASOPHILS % (AUTO) 1.1 %; EOSINOPHILS # (AUTO) 0.2 10^3/uL (0.0-0.7); EOSINOPHILS % (AUTO) 3.4 %; HGB - HEMOGLOBIN 13.3 g/dL (12.0-16.0); LYMPHOCYTES # (AUTO) 1.8 10^3/uL (1.5-3.5); LYMPHOCYTES % (AUTO) 28.7 %; MEAN CORPUSCULAR HGB CONC 29.6 g/dL (32.0-36.0); MEAN CORPUSCULAR VOLUME 81.2 fL (81.0-99.0); MEAN PLATELET VOLUME 11.2 fL (7.9-10.8); MONOCYTES # (AUTO) 0.6 10^3/uL (0.0-1.0); MONOCYTES % (AUTO) 8.7 %; NEUTROPHILS # (AUTO) 3.7 10^3/uL (1.5-6.6); NEUTROPHILS % (AUTO) 57.9 %; PLT - PLATELET COUNT 204 10^3/uL (130-450); RED BLOOD COUNT 5.54 10^6/uL (4.20-5.40); RED CELL DISTRIBUTION WIDTH 16.5 % (12.0-15.0); WHITE BLOOD COUNT 6.4 x10^3/uL (4.8-10.8)
[2022-09-14 13:52] LABS: ALBUMIN 3.6 g/dL (3.2-5.5); ALKALINE PHOSPHATASE 78 IU/L (42-121); ALT ALANINE AMINOTRANSFERASE < 10 IU/L (10-60); AST ASPARTATE AMINOTRANSFERASE 20 IU/L (10-42); BILIRUBIN,TOTAL 0.6 mg/dL (0.2-1.0); BUN - BLOOD UREA NITROGEN 18 mg/dL (6-20); CALCIUM 9.3 mg/dL (8.5-10.3); CARBON DIOXIDE - CO2 32 mmol/L (21-32); CHLORIDE 94 mmol/L (101-111); CHOL/HDL RATIO 3.5 (<4.4); CHOLESTEROL 204 mg/dL; CREATININE 0.9 mg/dL (0.4-1.0); GFR - MDRD 61 (>89); GLUCOSE 102 mg/dL (70-100); HDL CHOLESTEROL 58 mg/dL; LDL CHOLESTEROL,CALCULATED 110 mg/dL; LDL/HDL RATIO 1.9 (<4.4); POTASSIUM 3.9 mmol/L (3.5-5.0); SODIUM 134 mmol/L (135-145); TOTAL PROTEIN 7.3 g/dL (6.7-8.2); TRIGLYCERIDES 179 mg/dL; VLDL CHOLESTEROL 36 mg/dL
[2022-09-14 13:59] LABS: THYROID STIMULATING HORMONE 2.73 uIU/mL (0.34-5.60)
[2022-09-14 21:47] LABS: ESTIMATED AVERAGE GLUCOSE 120 mg/dL (70-100); HEMOGLOBIN A1c% 5.8 % (4.27-6.07)
== END 2022-09-14 13:19 | disposition home or self-care (01) ==
LOC: LAB 13:18
PROVIDERS: ATTEND Physician Assistant
DX: I10 Essential (primary) hypertension (principal); E78.1 Pure hyperglyceridemia; R73.03 Prediabetes
CPT/HCPCS: 36415; 80053; 80061; 83036; 83721; 84443; 85025

== ENCOUNTER 2023-09-14 08:37 | Outpatient (CLI) | payer MEDICARE ==
[2023-09-14 12:55] LABS: BASOPHILS # (AUTO) 0.1 10^3/uL (0.0-0.1); EOSINOPHILS # (AUTO) 0.3 10^3/uL (0.0-0.7); EOSINOPHILS % (AUTO) 3.7 %; HCT - HEMATOCRIT 44.5 % (37.0-47.0); HGB - HEMOGLOBIN 14.1 g/dL (12.0-16.0); LYMPHOCYTES # (AUTO) 1.8 10^3/uL (1.5-3.5); LYMPHOCYTES % (AUTO) 26.3 %; MEAN CORPUSCULAR HEMOGLOBIN 28.9 pg (27.0-31.0); MEAN CORPUSCULAR HGB CONC 31.7 g/dL (32.0-36.0); MEAN CORPUSCULAR VOLUME 91.2 fL (81.0-99.0); MONOCYTES # (AUTO) 0.8 10^3/uL (0.0-1.0); MONOCYTES % (AUTO) 11.1 %; NEUTROPHILS # (AUTO) 3.9 10^3/uL (1.5-6.6); NEUTROPHILS % (AUTO) 57.8 %; PLT - PLATELET COUNT 179 10^3/uL (130-450); RED BLOOD COUNT 4.88 10^6/uL (4.20-5.40); WHITE BLOOD COUNT 6.8 x10^3/uL (4.8-10.8)
[2023-09-14 13:23] LABS: ALBUMIN 3.8 g/dL (3.2-5.5); ALBUMIN/GLOBULIN RATIO 1.2 (1.0-2.2); ALKALINE PHOSPHATASE 73 IU/L (42-121); ALT ALANINE AMINOTRANSFERASE 4 IU/L (10-60); AST ASPARTATE AMINOTRANSFERASE 15 IU/L (10-42); BILIRUBIN,TOTAL 0.3 mg/dL (0.2-1.0); BUN - BLOOD UREA NITROGEN 23 mg/dL (6-20); CALCIUM 9.4 mg/dL (8.5-10.3); CARBON DIOXIDE - CO2 33 mmol/L (21-32); CHLORIDE 98 mmol/L (101-111); CHOL/HDL RATIO 3.5 (<4.4); CHOLESTEROL 198 mg/dL; GFR - MDRD 54 (>89); GLUCOSE 78 mg/dL (74-104); HDL CHOLESTEROL 57 mg/dL; LDL CHOLESTEROL,CALCULATED 88 mg/dL; LDL/HDL RATIO 1.5 (<4.4); POTASSIUM 3.8 mmol/L (3.5-4.5); SODIUM 136 mmol/L (135-145); TRIGLYCERIDES 263 mg/dL (48-352); VLDL CHOLESTEROL 53 mg/dL
[2023-09-14 13:25] LABS: ESTIMATED AVERAGE GLUCOSE 114 mg/dL (70-100); HEMOGLOBIN A1c% 5.6 % (4.27-6.07)
[2023-09-14 13:26] LABS: THYROID STIMULATING HORMONE 2.25 uIU/mL (0.34-5.60)
== END 2023-09-14 08:38 | disposition home or self-care (01) ==
LOC: LAB.N 08:37
PROVIDERS: ATTEND Physician Assistant
DX: E78.5 Hyperlipidemia, unspecified (principal); R73.03 Prediabetes; I10 Essential (primary) hypertension
CPT/HCPCS: 36415; 80053; 80061; 83036; 83721; 84443; 85025